=== PATIENT | male | born 1975 | race African-American/Black ===

== ENCOUNTER 2018-01-21 01:53 | Emergency (ER) | payer OTHER ==
--- NOTE | 2018-01-21 03:18 | ED ---
Fall HPI - General Chief Complaint: Fall Stated Complaint: Fall Time Seen by Provider: 01/21/18 02:16 Source: patient Mode of arrival: wheelchair - History of Present Illness Initial Comments: 42-year-old male patient presents to the emergency department today for evaluation of right knee pain and back pain after expressing a fall this evening. Patient states around 1 AM he was about 4-5 steps up on a ladder when he slipped and fell landing on his right side. Patient denies hitting his head but states he did lose consciousness after hitting the ground. Patient states he is having pain to his entire back as well as his right knee. Patient states he was able to ambulate. States he does have pain radiating down his anterior legs to his feet as well as some numbness and tingling to the feet which is not new for him. States he does have chronic back pain. Patient denies any saddle anesthesia or loss of bowel or bladder control. Patient states he is also having some neck discomfort that worsens when he turns his head right or left. He denies any radiation of the pain down his arms, denies numbness or tingling to his upper extremities. Patient denies any chest pain, shortness of breath, abdominal pain, nausea, or vomiting. Denies any blurred or double vision. During history and physical exam patient is quite drowsy. Patient has changed the story a couple of times during this interview. Patient denies any alcohol or drug use. Denies taking anything for pain. - Related Data Previous Rx's Medication Instructions Recorded Ibuprofen [Motrin] 600 mg PO Q8HR PRN #30 tab 01/21/18 Allergies Allergy/AdvReac Type Severity Reaction Status Date / Time No Known Allergies Allergy Verified 01/21/18 02:09 Review of Systems ROS Statement: Those systems with pertinent positive or pertinent negative responses have been documented in the HPI. ROS Other: All systems not noted in ROS Statement are negative. Past Medical History Past Medical History: Hypertension History of Any Multi-Drug Resistant Organisms: None Reported Past Surgical History: Bowel Resection Past Psychological History: No Psychological Hx Reported Smoking Status: Current every day smoker Past Alcohol Use History: Occasional Past Drug Use History: Marijuana General Exam Limitations: no limitations General appearance: in no apparent distress, other (Patient is drowsy. He is a well-developed, well-nourished adult male patient in no acute distress. Vital signs upon presentation are temperature 98.4F, pulse 84, respirations 15, blood pressure 101/72, pulse ox 98% on room air.) Head exam: Present: atraumatic, normocephalic, normal inspection Eye exam: Present: normal appearance, PERRL, EOMI, other (Pupils 2 mm). Absent : scleral icterus, conjunctival injection, periorbital swelling, periorbital tenderness ENT exam: Present: normal exam, normal oropharynx, mucous membranes moist Neck exam: Present: normal inspection, full ROM, other (No cervical tenderness) . Absent: tenderness, meningismus, lymphadenopathy Respiratory exam: Present: normal lung sounds bilaterally. Absent: respiratory distress, wheezes, rales, rhonchi, stridor Cardiovascular Exam: Present: regular rate, normal rhythm, normal heart sounds. Absent: systolic murmur, diastolic murmur, rubs, gallop, clicks GI/Abdominal exam: Present: soft, normal bowel sounds. Absent: distended, tenderness, guarding, rebound, rigid Extremities exam: Present: normal inspection, full ROM, normal capillary refill , other (Patient has no tenderness to the right any. Skin is warm and dry with no swelling or ecchymosis. No surface trauma noted. Pedal and posttibial pulses 2+ and equal bilaterally.). Absent: tenderness, pedal edema, joint swelling, calf tenderness Back exam: Present: normal inspection, vertebral tenderness (Patient did have thoracic vertebral tenderness), other (No lumbar tenderness. No evidence of ecchymosis or swelling. No bony step-off or deformity noted to for midline palpation of the posterior thoracic and lumbar spines.) Neurological exam: Present: CN II-XII intact. Absent: alert (Drowsy), oriented X3 (Oriented 2) Psychiatric exam: Present: normal affect, normal mood Skin exam: Present: warm, dry, intact, normal color. Absent: rash Course Vital Signs 01/21/18 01/21/18 02:04 05:21 Temperature 98.4 F 97.6 F Pulse Rate 84 74 Respiratory 15 18 Rate Blood Pressure 101/72 126/57 O2 Sat by Pulse 98 99 Oximetry Medical Decision Making - Medical Decision Making 42-year-old male patient presented to the emergency department today for evaluation of right knee pain and back pain after expressing a fall today. Patient initially stated he was on a ladder and fell from 4-5 rungs up. Patient did change his story multiple times on the emergency department. He was quite drowsy upon initial evaluation. Physical examination did reveal some right anterior knee tenderness and swelling. Patient had some mid thoracic vertebral tenderness. Other than being drowsy patient was neurologically intact with no focal deficits. CT brain and C-spine was obtained and showed no acute abnormalities. X-ray of the thoracic vertebrae did show 5-10% wedging of the lower thoracic vertebra which is consistent with previous x-ray and old injury. X-ray of the right knee was obtained and did show a high riding patella which is consistent with infrapatellar tendon tear. Upon reevaluation patient is more alert and is answering questions appropriately. States that he slipped and fell while outside and did a fall from ground level position onto the cement. I did discuss findings and results with the patient. He will be placed in a knee immobilizer and instructed to follow-up with the cyber systems operations specialist as soon as possible. He is instructed to follow-up with his primary care physician for recheck in 1-2 days. Return parameters were discussed in detail. He verbalizes understanding and agrees with this plan. - EKG Data -: EKG Interpreted by Me EKG Comments: EKG obtained at 0227 shows normal sinus rhythm with a ventricular rate of 84, WI interval 136, QRS duration 92, QT 356, QTC 420. No evidence of ST elevation or depression. - Radiology Data Radiology results: report reviewed, image reviewed 3 views of the thoracic vertebrae were obtained. Report was reviewed in its entirety. Impression by Dr. James shows mild hypertrophic spurring. No acute fracture. No adverse change compared to old exam. There is 5-10% wedging of lower thoracic vertebra consistent with old injury. This appears unchanged. 3 views of the right knee were obtained. Report was reviewed in its entirety. Impression by Dr. James shows patella appears to be in a high physician is consistent with tear of the infrapatellar tendon. No fracture seen. There is soft tissue swelling of tendon region. CT of the brain and C-spine was obtained without contrast. Report was reviewed in its entirety. Impression by Dr. James shows negative computed tomography scan of the brain. Spondylotic changes in the lower and mid cervical spine. No fracture. There is probably some degree of spinal stenosis due to the ligament calcification. Disposition Clinical Impression: Patellar tendon rupture, Head injury Disposition: HOME SELF-CARE Condition: Good Instructions: Head Injury (ED), Knee Immobilizer (ED), Tendon Rupture (ED) Additional Instructions: Take medication as directed. Follow-up with cyber systems operations specialist for recheck since possible. Return here immediately for any new, worsening, or concerning symptoms. Prescriptions: Ibuprofen [Motrin] 600 mg PO Q8HR PRN #30 tab PRN Reason: Pain Is patient prescribed a controlled substance at d/c from ED?: No Referrals: Nonstaff,Physician [Primary Care Provider] - 1-2 days Sy Rojas DO [Doctor of Osteopathic Medicine] - 1-2 days Time of Disposition: 05:03
--- NOTE | 2018-01-21 03:29 | CT ---
EXAMINATION TYPE: CT brain wilda bernardo DATE OF EXAM: 01/21/2018 COMPARISON: HISTORY: poor historian, fall?? CT DLP: 1476.10 mGycm Automated exposure control for dose reduction was used. TECHNIQUE: CT scan of the head and cervical spine are performed without contrast. FINDINGS: Ventricles of normal size. There is no mass effect nor midline shift. There is no sign of intracranial hemorrhage. The calvarium is intact. Cervical vertebra have normal alignment. There is hypertrophic anterior spurring from C4 to T1. Poste rior elements are intact. There is mild hypertrophic facet arthropathy in the lower cervical spine. S kull base is intact. There is calcification in the posterior longitudinal ligament from C4 to C7. IMPRESSION: Negative CT scan of the brain. Spondylotic changes in the lower and mid cervical spine. No fracture. There is probably some degree o f spinal stenosis due to the ligament calcification.
--- NOTE | 2018-01-21 03:51 | XR ---
EXAMINATION TYPE: XR thoracic spine complete DATE OF EXAM: 01/21/2018 COMPARISON: 07/11/2010 HISTORY: Back pain TECHNIQUE: 3 views FINDINGS: Thoracic vertebra have normal spacing and alignment. There is mild spurring of the endplate s in the lower thoracic spine. There is no paraspinal mass. Posterior elements are intact IMPRESSION: Mild hypertrophic spurring. No acute fracture. No adverse change compared to old exam. Th ere is 5-10% wedging of lower thoracic vertebra consistent with old injury. This appears unchanged.
--- NOTE | 2018-01-21 03:53 | XR ---
EXAMINATION TYPE: XR knee complete RT DATE OF EXAM: 01/21/2018 COMPARISON: NONE HISTORY: Knee pain TECHNIQUE: 3 views FINDINGS: There is some soft tissue swelling anterior to the proximal tibia. There is no joint effusi on. I see no fracture nor dislocation. Patella is in high position on the lateral view. IMPRESSION: Patella appears to be in a high position that is consistent with tear of the infrapatella r tendon. No fracture seen. There is soft tissue swelling of the tendon region.
[2018-01-21] MEDS ORDERED: NALOXONE 0.4 MG/ML 10 ML VIAL IM STA (04:45)
[2018-01-21 05:21] VITALS: BP 126/57; PULSE 74; RESP 18; TEMP 97.6
== END 2018-01-21 05:34 | disposition home or self-care (01) ==
LOC: EC 01:53
DX: S76.111A Strain of right quadriceps muscle, fascia and tendon, initial encounter (principal); S09.90XA Unspecified injury of head, initial encounter; M47.812 Spondylosis without myelopathy or radiculopathy, cervical region; M46.04 Spinal enthesopathy, thoracic region; G89.29 Other chronic pain; M54.9 Dorsalgia, unspecified; M79.604 Pain in right leg; M79.605 Pain in left leg; M79.671 Pain in right foot; M79.672 Pain in left foot; R20.0 Anesthesia of skin; R20.2 Paresthesia of skin; F17.200 Nicotine dependence, unspecified, uncomplicated; Z53.8 Procedure and treatment not carried out for other reasons; W01.0XXA Fall on same level from slipping, tripping and stumbling without subsequent striking against object, initial encounter; Y92.89 Other specified places as the place of occurrence of the external cause
CPT/HCPCS: 93005; 72072; 73562; 72125; 70450; 99284; L1830

== ENCOUNTER 2018-01-29 01:46 | Emergency (ER) | payer OTHER ==
--- NOTE | 2018-01-29 02:11 | ED ---
General Adult HPI - General Stated complaint: Fever Time Seen by Provider: 01/29/18 01:55 Source: patient, EMS Limitations: altered mental status - History of Present Illness Initial comments: This patient is a 42-year-old man who resents by ambulance to be evaluated for right hip pain. The patient reports that he had a fall a little over a week ago. He states he fell off a ladder, landing on hard floor. He believes that the height was 4-6 feet. Patient denies other injuries. The patient is very somnolent and the history is limited. Onset/Timin -: week(s) Location: right, lower extremity Radiation: non-radiation Quality: aching Consistency: constant Improves with: none Worsens with: movement Associated Symptoms: denies other symptoms Treatments Prior to Arrival: none - Related Data Previous Rx's Medication Instructions Recorded Ibuprofen [Motrin] 600 mg PO Q8HR PRN #30 tab 01/21/18 Allergies Allergy/AdvReac Type Severity Reaction Status Date / Time No Known Allergies Allergy Verified 01/21/18 02:09 Review of Systems ROS Statement: Those systems with pertinent positive or pertinent negative responses have been documented in the HPI. ROS Other: All systems not noted in ROS Statement are negative. Limitations: ROS unobtainable due to patients medical condition Cardiovascular: Denies: chest pain Gastrointestinal: Denies: abdominal pain Musculoskeletal: Reports: as per HPI Neurological: Denies: headache Past Medical History Past Medical History: Hypertension History of Any Multi-Drug Resistant Organisms: None Reported Past Surgical History: Bowel Resection Past Psychological History: No Psychological Hx Reported Smoking Status: Current every day smoker Past Alcohol Use History: Occasional Past Drug Use History: Marijuana General Exam General appearance: in no apparent distress, other (Patient is somnolent but arouses to physical stimulus.) Head exam: Present: atraumatic, normocephalic Eye exam: Present: normal appearance, PERRL, EOMI, nystagmus. Absent: scleral icterus, conjunctival injection ENT exam: Present: mucous membranes dry Neck exam: Present: normal inspection, full ROM. Absent: tenderness Respiratory exam: Present: normal lung sounds bilaterally. Absent: respiratory distress, wheezes, rales, rhonchi, stridor Cardiovascular Exam: Present: regular rate, normal rhythm, normal heart sounds. Absent: systolic murmur, diastolic murmur, rubs, gallop GI/Abdominal exam: Present: soft. Absent: tenderness, guarding, rebound, mass Extremities exam: Present: normal inspection, tenderness (Right lateral hip), normal capillary refill. Absent: pedal edema, calf tenderness Back exam: Present: normal inspection. Absent: CVA tenderness (R), CVA tenderness (L), vertebral tenderness Neurological exam: Present: CN II-XII intact, other (Patient is somnolent but arousable. He is oriented to person and place but could not state the date.). Absent: motor sensory deficit Skin exam: Present: warm, dry, intact, normal color. Absent: rash Course Vital Signs 01/29/18 02:19 Temperature 99.5 F Pulse Rate 94 Respiratory 20 Rate Blood Pressure 107/66 O2 Sat by Pulse 98 Oximetry EKG Findings - EKG Results: EKG: interpreted by SOPHIE MATHEW, sinus rhythm (Rate 95 bpm), normal axis, normal QRS, normal ST/T, no acute changes - NC, Pacemaker, Normal: Normal tracing: normal tracing Medical Decision Making - Lab Data Result diagrams: 01/29/18 02:28 01/29/18 02:28 Lab Results 01/29/18 01/29/18 01/29/18 Range/Units 02:05 02:28 02:28 WBC 8.0 (3.8-10.6) k/uL RBC 4.01 L (4.30-5.90) m/uL Hgb 12.2 L (13.0-17.5) gm/dL Hct 37.0 L (39.0-53.0) % MCV 92.4 (80.0-100.0) fL MCH 30.3 (25.0-35.0) pg MCHC 32.8 (31.0-37.0) g/dL RDW 13.0 (11.5-15.5) % Plt Count 273 (150-450) k/uL Neutrophils % 74 % Lymphocytes % 18 % Monocytes % 4 % Eosinophils % 3 % Basophils % 0 % Neutrophils # 5.9 (1.3-7.7) k/uL Lymphocytes # 1.5 (1.0-4.8) k/uL Monocytes # 0.3 (0-1.0) k/uL Eosinophils # 0.2 (0-0.7) k/uL Basophils # 0.0 (0-0.2) k/uL PT (9.0-12.0) sec INR (<1.2) APTT (22.0-30.0) sec Sodium (137-145) mmol/L Potassium (3.5-5.1) mmol/L Chloride (98-107) mmol/L Carbon Dioxide (22-30) mmol/L Anion Gap mmol/L BUN (9-20) mg/dL Creatinine (0.66-1.25) mg/dL Est GFR (CKD-EPI)AfAm (>60 ml/min/1.73 sqM) Est GFR (CKD-EPI)NonAf (>60 ml/min/1.73 sqM) Glucose (74-99) mg/dL Calcium (8.4-10.2) mg/dL Total Bilirubin (0.2-1.3) mg/dL AST (17-59) U/L ALT (21-72) U/L Alkaline Phosphatase (38-126) U/L Total Creatine Kinase 296 H (55-170) U/L CK-MB (CK-2) 2.5 H (0.0-2.4) ng/mL CK-MB (CK-2) Rel Index 0.8 Total Protein (6.3-8.2) g/dL Albumin (3.5-5.0) g/dL Serum Alcohol 126 mg/dL 01/29/18 01/29/18 Range/Units 02:28 02:28 WBC (3.8-10.6) k/uL RBC (4.30-5.90) m/uL Hgb (13.0-17.5) gm/dL Hct (39.0-53.0) % MCV (80.0-100.0) fL MCH (25.0-35.0) pg MCHC (31.0-37.0) g/dL RDW (11.5-15.5) % Plt Count (150-450) k/uL Neutrophils % % Lymphocytes % % Monocytes % % Eosinophils % % Basophils % % Neutrophils # (1.3-7.7) k/uL Lymphocytes # (1.0-4.8) k/uL Monocytes # (0-1.0) k/uL Eosinophils # (0-0.7) k/uL Basophils # (0-0.2) k/uL PT 9.6 (9.0-12.0) sec INR 1.0 (<1.2) APTT 26.2 (22.0-30.0) sec Sodium 141 (137-145) mmol/L Potassium 3.8 (3.5-5.1) mmol/L Chloride 105 (98-107) mmol/L Carbon Dioxide 23 (22-30) mmol/L Anion Gap 13 mmol/L BUN 13 (9-20) mg/dL Creatinine 0.67 (0.66-1.25) mg/dL Est GFR (CKD-EPI)AfAm >90 (>60 ml/min/1.73 sqM) Est GFR (CKD-EPI)NonAf >90 (>60 ml/min/1.73 sqM) Glucose 92 (74-99) mg/dL Calcium 9.0 (8.4-10.2) mg/dL Total Bilirubin 0.6 (0.2-1.3) mg/dL AST 32 (17-59) U/L ALT 19 L (21-72) U/L Alkaline Phosphatase 55 (38-126) U/L Total Creatine Kinase (55-170) U/L CK-MB (CK-2) (0.0-2.4) ng/mL CK-MB (CK-2) Rel Index Total Protein 7.4 (6.3-8.2) g/dL Albumin 3.9 (3.5-5.0) g/dL Serum Alcohol mg/dL Disposition Clinical Impression: Fall Disposition: HOME SELF-CARE Condition: Good Instructions: Fall Prevention (ED) Is patient prescribed a controlled substance at d/c from ED?: No Referrals: None,Stated [Primary Care Provider] - 1-2 days
[2018-01-29 02:23] VITALS: RESP 20
[2018-01-29 02:40] LABS: Basophils % (A) 0 %; Eosinophils # (A) 0.2 k/uL (0-0.7); Eosinophils % (A) 3 %; HGB 12.2 gm/dL (13.0-17.5); Lymphocytes # (A) 1.5 k/uL (1.0-4.8); Lymphocytes % (A) 18 %; MCH 30.3 pg (25.0-35.0); MCHC 32.8 g/dL (31.0-37.0); MCV 92.4 fL (80.0-100.0); Mean Platelet Volume 7.1; Monocytes # (A) 0.3 k/uL (0-1.0); Monocytes % (A) 4 %; Neutrophils # (A) 5.9 k/uL (1.3-7.7); Neutrophils % (A) 74 %; Platelet Count 273 k/uL (150-450); RBC 4.01 m/uL (4.30-5.90)
[2018-01-29 02:54] LABS: Partial Thromboplastin Time 26.2 sec (22.0-30.0); Prothrombin Time 9.6 sec (9.0-12.0)
[2018-01-29 02:59] LABS: ALT 19 U/L (21-72); AST 32 U/L (17-59); Albumin 3.9 g/dL (3.5-5.0); Alkaline Phosphatase 55 U/L (38-126); Anion Gap 13 mmol/L; Blood Urea Nitrogen 13 mg/dL (9-20); Carbon Dioxide 23 mmol/L (22-30); Chloride 105 mmol/L (98-107); Creatine Kinase MB 2.5 ng/mL (0.0-2.4); Glucose 92 mg/dL (74-99); Potassium 3.8 mmol/L (3.5-5.1); Sodium 141 mmol/L (137-145); Total Bilirubin 0.6 mg/dL (0.2-1.3); Total Protein 7.4 g/dL (6.3-8.2)
--- NOTE | 2018-01-29 03:27 | CT ---
EXAMINATION TYPE: CT brain wo con DATE OF EXAM: 01/29/2018 COMPARISON: 01/21/2018 HISTORY: Fall. Pain. CT DLP: mGycm. Automated Exposure Control for Dose Reduction was Utilized. TECHNIQUE: CT scan of the head is performed without contrast. FINDINGS: Ventricles of normal size. There is no mass effect nor midline shift. There is no sign of i ntracranial hemorrhage. The calvarium is intact. IMPRESSION: Negative CT scan of the brain. No change.
--- NOTE | 2018-01-29 03:29 | XR ---
EXAMINATION TYPE: XR Hip RT and AP Pelvis DATE OF EXAM: 01/29/2018 COMPARISON: NONE HISTORY: Fall. Hip pain TECHNIQUE: A single AP view of the pelvis is obtained. Two views of the right hip are obtained. FINDINGS: The pelvic ring is intact. Proximal right femur and hip joint appear normal. There is no si gn of hip dysplasia. Sacroiliac joints appear normal. IMPRESSION: Negative pelvis and right hip exam.
[2018-01-29 07:00] VITALS: BP 115/76; PULSE 110; TEMP 98.9
== END 2018-01-29 07:00 | disposition home or self-care (01) ==
LOC: EC 01:46
DX: H55.00 Unspecified nystagmus (principal); R40.0 Somnolence; M25.551 Pain in right hip; F17.200 Nicotine dependence, unspecified, uncomplicated; W11.XXXA Fall on and from ladder, initial encounter
CPT/HCPCS: 36415; 93005; 80053; 82550; 82553; 85025; 85610; 85730; 73502; 70450; 99285; G0480; 80320

== ENCOUNTER 2018-03-07 21:24 | Emergency (ER) | payer OTHER ==
[2018-03-07 21:38] VITALS: PULSE 74; RESP 20
--- NOTE | 2018-03-07 22:24 | ED ---
General Adult HPI - General Source: patient, RN notes reviewed, old records reviewed Mode of arrival: ambulatory Limitations: no limitations <Harshal Rodriguez - Last Filed: 03/07/18 22:08> <Leena Stanton - Last Filed: 03/08/18 00:05> - General Chief complaint: Headache Stated complaint: Migraine - History of Present Illness Initial comments: 42-year-old male patient presents to ED with multiple complaints. Patient's primary complaint is pressure at maxillary sinus, congestion, rhinitis. Patient states he has been experiencing this for approximately 1 week. Patient has secondary complaint mild of pain in abdomen waxing waning for approximately 2 days. Patient has been complaint of pain in right knee for approximately 1 week. Upon further history patient reports that he fell off a ladder approximately 6 ft off the ground 1.5 weeks ago. Patient reports that in this fall he hurt his head, right knee. Patient states that he suffered a laceration to his head "lost a lot of blood". Patient states that he was seen at [facility] discharge. Patient denies that he had any sort of fracture, intracranial pathology after the trauma. Exam of patient does not reveal any laceration to head or signs of recent trauma. Patient denies chest pain, shortness of breath, fever/chills, nausea vomiting diarrhea, changes in vision, paresthesias, extremity weakness, loss of bowel or bladder control, back pain. Systemic: Pt denies fatigue, myalgia, fever/chills, rash. Pt denies weakness, night sweats, weight loss. Neuro: Pt denies visual disturbances, syncope or pre-syncope. HEENT: Pt denies ocular discharge or irritation, otalgia, rhinorrhea, pharyngitis or notable lymphadenopathy. Cardiopulmonary: Pt denies chest pain, SOB, heart palpitations, dyspnea on exertion. Abdominal/GI: Pt denies abdominal pain, n/v/d. : Pt denies dysuria, burning w/ urination, frequency/urgency. Denies new onset urinary or bowel incontinence. MSK: Pt denies myalgia, loss of strength or function in extremities. (Harshal Rodriguez) - Related Data Previous Rx's Medication Instructions Recorded Ibuprofen [Motrin] 600 mg PO Q8HR PRN #30 tab 01/21/18 Amoxicillin/Potassium Clav 1 each PO Q12HR 7 Days #14 tab 03/07/18 [Augmentin 875-125 Tablet] Fluticasone Propionate [Flonase 1 - 2 spray EA NOSTRIL DAILY 5 03/07/18 Allergy Relief] Days ml Allergies Allergy/AdvReac Type Severity Reaction Status Date / Time No Known Allergies Allergy Verified 01/21/18 02:09 Review of Systems ROS Other: All systems not noted in ROS Statement are negative. <Harshal Rodriguez - Last Filed: 03/07/18 22:08> ROS Other: All systems not noted in ROS Statement are negative. <Leena Stanton - Last Filed: 03/08/18 00:05> ROS Statement: Those systems with pertinent positive or pertinent negative responses have been documented in the HPI. Past Medical History Past Medical History: Hypertension History of Any Multi-Drug Resistant Organisms: None Reported Past Surgical History: Bowel Resection Past Psychological History: No Psychological Hx Reported Smoking Status: Current every day smoker Past Alcohol Use History: Occasional Past Drug Use History: Marijuana <Harshal Rodriguez - Last Filed: 03/07/18 22:08> General Exam Limitations: no limitations <Harshal Rodriguez - Last Filed: 03/07/18 22:08> <Leena Stanton - Last Filed: 03/08/18 00:05> - General Exam Comments Initial Comments: Constitutional: NAD, AOX3, Pt has pleasant affect. HEENT: NC/AT, trachea midline, neck supple, no lymphadenopathy. Posterior pharynx non erythematous, without exudates. External ears appear normal, without discharge. Mucous membranes moist. Eyes PERRLA, EOM intact. There is no scleral icterus. No pallor noted. Maxillary sinus pressure reproducible upon palpation. Cardiopulmonary: RRR, no murmurs, rubs or gallops, no JVD noted. Lungs CTAB in anterior and posterior jhaveri. No peripheral edema. Abdominal exam: Abdomen soft and non-distended. Abdomen non-tender to palpation in all 4 quadrants. Bowel sounds active in LLQ. No hepatosplenomegaly. Patient does have a large ventral scar secondary to intra-abdominal surgery about 2 years ago. Neuro: CN II-XII intact. No cranial nerve deficit. Full sensation and range of motion in all extremities. MSK: Head NC/AT. No contusions, lacerations, ecchymoses, abrasions noted. No barroso sign, raccoon eyes. Full active range of motion of neck, mild cervical spinal tenderness. Right knee examined. No visual deformity, ecchymoses, abrasions, erythema, edema. Patient has full range of motion right knee. No point tenderness. Dorsalis pedis and posterior tibialis pulse +2 bilaterally. Sensation intact in upper and lower extremities. Patient ambulatory without difficulty. (Harshal Rodriguez) Vital Signs 03/07/18 03/07/18 21:35 23:24 Temperature 98.1 F 97.7 F Pulse Rate 74 74 Respiratory 20 20 Rate Blood Pressure 122/77 129/92 O2 Sat by Pulse 97 95 Oximetry Medical Decision Making <Harshal Rodriguez - Last Filed: 03/07/18 22:08> - Lab Data Result diagrams: 03/07/18 22:14 03/07/18 22:14 <Leena Stanton - Last Filed: 03/08/18 00:05> - Medical Decision Making 42-year-old male patient presents in ED with multiple complaints. Primary complaint was maxillary sinus pressure, rhinitis, congestion approximately one week. Patient will be treated for acute sinusitis, discharged with by mouth antibiotic and decongestant. Patient had secondary complaint of abdominal pain , waxing and waning approximately 2 days. Abdomen is nontender on exam, no ecchymoses. Patient states that the pain is waxing and waning, non specific and not localized. This is likely moderate GI upset secondary to acute sinusitis or concurrent viral GI bug. Patient does not have nausea/vomiting/diarrhea or fevers or chills. Patient will continue to monitor this and return to ED if the symptoms worsen. Laboratory workup of CBC, CMP, amylase, lipase did not display any concern for acute intra-abdominal pathology. Patient had third complaint of knee pain and history of fall off ladder approximately 1.5 weeks, in which he sought care at [facility]. Physical exam revealed moderate right cervical spinal tenderness. Noncontrast CT of head and neck was conducted as well as plain film of right knee. Both which are negative. Patient to be discharged with by mouth antibiotic and decongestant for acute sinusitis. Patient to continue to monitor abdominal pain, return to ED if symptoms worsen or new symptoms develop. Patient given strict return parameters upon discharge. These included but not limited to, chest pain, abdominal pain, headache, chest vision, nausea and diarrhea, abdominal pain. Patient to follow with PCP in 1-2 days. Case discussed with Dr. Stanton. (Harshal Rodriguez) I was available for consultation in the emergency department. The history and physical exam were done by the midlevel provider. I was consulted for this patient's care. I reviewed the case with the midlevel provider and based on their presentation of the patient, I agree with the assessment, medical decision making and plan of care as documented. (Leena Stanton) - Lab Data Lab Results 03/07/18 03/07/18 Range/Units 22:14 22:14 WBC 4.4 (3.8-10.6) k/uL RBC 3.76 L (4.30-5.90) m/uL Hgb 12.0 L (13.0-17.5) gm/dL Hct 35.3 L (39.0-53.0) % MCV 94.1 (80.0-100.0) fL MCH 32.0 (25.0-35.0) pg MCHC 34.0 (31.0-37.0) g/dL RDW 12.9 (11.5-15.5) % Plt Count 219 (150-450) k/uL Neutrophils % 48 % Lymphocytes % 40 % Monocytes % 7 % Eosinophils % 2 % Basophils % 0 % Neutrophils # 2.1 (1.3-7.7) k/uL Lymphocytes # 1.8 (1.0-4.8) k/uL Monocytes # 0.3 (0-1.0) k/uL Eosinophils # 0.1 (0-0.7) k/uL Basophils # 0.0 (0-0.2) k/uL Sodium 139 (137-145) mmol/L Potassium 4.2 (3.5-5.1) mmol/L Chloride 107 (98-107) mmol/L Carbon Dioxide 26 (22-30) mmol/L Anion Gap 6 mmol/L BUN 14 (9-20) mg/dL Creatinine 0.84 (0.66-1.25) mg/dL Est GFR (CKD-EPI)AfAm >90 (>60 ml/min/1.73 sqM) Est GFR (CKD-EPI)NonAf >90 (>60 ml/min/1.73 sqM) Glucose 101 H (74-99) mg/dL Calcium 9.4 (8.4-10.2) mg/dL Total Bilirubin 0.6 (0.2-1.3) mg/dL AST 24 (17-59) U/L ALT 29 (21-72) U/L Alkaline Phosphatase 54 (38-126) U/L Total Protein 7.2 (6.3-8.2) g/dL Albumin 3.7 (3.5-5.0) g/dL Amylase 99 (30-110) U/L Lipase 280 (23-300) U/L Disposition Is patient prescribed a controlled substance at d/c from ED?: No <Harshal Rodriguez - Last Filed: 03/07/18 22:08> <Leena Stanton - Last Filed: 03/08/18 00:05> Clinical Impression: Sinusitis, acute Disposition: HOME SELF-CARE Condition: Good Instructions: Sinusitis (ED) Additional Instructions: Patient to adhere to previously discussed treatment plan and will take medication(s) as directed. Patient to follow up with PCP in 1-2 days. Patient to return to ED if symptoms do not improve. Prescriptions: Amoxicillin/Potassium Clav [Augmentin 875-125 Tablet] 1 each PO Q12HR 7 Days # 14 tab Fluticasone Propionate [Flonase Allergy Relief] 1 - 2 spray EA NOSTRIL DAILY 5 Days ml Referrals: Nonstaff,Physician [Primary Care Provider] - 1-2 days
--- NOTE | 2018-03-07 22:42 | XR ---
EXAMINATION TYPE: XR knee complete RT DATE OF EXAM: 03/07/2018 COMPARISON: NONE HISTORY: Knee pain TECHNIQUE: 3 views FINDINGS: I see no fracture nor dislocation. Joint spaces are fairly normal. There is no sign of knee joint effusion. IMPRESSION: Negative right knee exam. No fracture.
[2018-03-07 22:51] LABS: Basophils % (A) 0 %; Eosinophils # (A) 0.1 k/uL (0-0.7); Eosinophils % (A) 2 %; HCT 35.3 % (39.0-53.0); Lymphocytes # (A) 1.8 k/uL (1.0-4.8); Lymphocytes % (A) 40 %; MCV 94.1 fL (80.0-100.0); Mean Platelet Volume 7.4; Monocytes # (A) 0.3 k/uL (0-1.0); Monocytes % (A) 7 %; Neutrophils # (A) 2.1 k/uL (1.3-7.7); Neutrophils % (A) 48 %; Platelet Count 219 k/uL (150-450); RBC 3.76 m/uL (4.30-5.90); RDW 12.9 % (11.5-15.5); WBC 4.4 k/uL (3.8-10.6)
--- NOTE | 2018-03-07 22:52 | CT ---
EXAMINATION TYPE: CT brain gonzalezine wo con DATE OF EXAM: 03/07/2018 COMPARISON: 01/21/2018 HISTORY: head and neck pain without injury CT DLP: 1175.3 mGycm Automated exposure control for dose reduction was used. TECHNIQUE: CT scan of the head and cervical spine are performed without contrast. FINDINGS: Ventricles and sulci appear normal. There is no mass effect nor midline shift. There is n o sign of intracranial hemorrhage. The calvarium is intact. Sella turcica appears normal. Cervical vertebra have normal alignment. There is hypertrophic spurring from C4 to C7 with endplate s pur formation. Facet joints are intact. The skull base is intact. I see no bony destructive process. IMPRESSION: Spondylotic changes in the cervical spine. No fracture. No change compared to old exam. Negative CT scan of the brain. No change compared to old exam.
[2018-03-07 23:00] LABS: ALT 29 U/L (21-72); AST 24 U/L (17-59); Albumin 3.7 g/dL (3.5-5.0); Alkaline Phosphatase 54 U/L (38-126); Amylase 99 U/L (30-110); Anion Gap 6 mmol/L; Blood Urea Nitrogen 14 mg/dL (9-20); Calcium 9.4 mg/dL (8.4-10.2); Carbon Dioxide 26 mmol/L (22-30); Chloride 107 mmol/L (98-107); Glucose 101 mg/dL (74-99); Lipase 280 U/L (23-300); Potassium 4.2 mmol/L (3.5-5.1); Sodium 139 mmol/L (137-145); Total Bilirubin 0.6 mg/dL (0.2-1.3); Total Protein 7.2 g/dL (6.3-8.2)
[2018-03-07 23:28] VITALS: BP 129/92; TEMP 97.7
== END 2018-03-07 23:28 | disposition home or self-care (01) ==
LOC: EC 21:24
DX: J01.90 Acute sinusitis, unspecified (principal); M25.561 Pain in right knee; R10.9 Unspecified abdominal pain; F17.200 Nicotine dependence, unspecified, uncomplicated
CPT/HCPCS: 36415; 70450; 72125; 80053; 82150; 83690; 85025; 99284

== ENCOUNTER 2018-03-23 21:59 | Emergency (ER) | payer OTHER ==
--- NOTE | 2018-03-24 00:27 | ED ---
General Adult HPI - General Chief complaint: Recheck/Abnormal Lab/Rx Stated complaint: joint pain Time Seen by Provider: 03/24/18 00:26 Source: patient Mode of arrival: ambulatory Limitations: no limitations - History of Present Illness Initial comments: Is a 42-year-old -[place] male with a history of closed head injury he presents the emergency department today for evaluation of flulike illness. Patient reports that he was in contact with his nieces and nephews who have flulike illness as well, he reports that for the past 3 days he's had an otherwise body aches, cramping of his entire body, today she reports subjective fevers, nonproductive cough. Patient is versus concerned he may have the flu. - Related Data Previous Rx's Medication Instructions Recorded Ibuprofen [Motrin] 600 mg PO Q8HR PRN #30 tab 01/21/18 Amoxicillin/Potassium Clav 1 each PO Q12HR 7 Days #14 tab 03/07/18 [Augmentin 875-125 Tablet] Fluticasone Propionate [Flonase 1 - 2 spray EA NOSTRIL DAILY 5 03/07/18 Allergy Relief] Days ml Allergies Allergy/AdvReac Type Severity Reaction Status Date / Time No Known Allergies Allergy Verified 03/23/18 22:51 Review of Systems ROS Statement: Those systems with pertinent positive or pertinent negative responses have been documented in the HPI. ROS Other: All systems not noted in ROS Statement are negative. Constitutional: Reports: fever Respiratory: Reports: cough Cardiovascular: Reports: chest pain Endocrine: Reports: fatigue Gastrointestinal: Denies: abdominal pain, nausea, vomiting Genitourinary: Denies: urgency Skin: Denies: rash Neurological: Denies: headache Hematological/Lymphatic: Denies: easy bleeding Past Medical History Past Medical History: Hypertension, Seizure Disorder History of Any Multi-Drug Resistant Organisms: None Reported Past Surgical History: Bowel Resection Past Psychological History: No Psychological Hx Reported Smoking Status: Current every day smoker Past Alcohol Use History: Occasional Past Drug Use History: Marijuana General Exam - General Exam Comments Initial Comments: Physical Exam GENERAL: Patient is well-developed and well-nourished. Patient is nontoxic and well- hydrated and is in no distress. HENT: Normocephalic, Atraumatic. EYES: PERRL, EOMI PULMONARY: Unlabored respirations. No audible rales rhonchi or wheezing was noted. CARDIOVASCULAR: There is a regular rate and rhythm without any murmurs gallops or rubs. ABDOMEN: Soft and nontender with normal bowel sounds. SKIN: Skin is clear with no lesions or rashes and otherwise unremarkable. : Deferred NEUROLOGIC: Patient is alert and oriented x3. Moving all extremities spontaneously MUSCULOSKELETAL: Normal extremities with adequate strength and full range of motion. No lower extremity swelling or edema. No calf tenderness. PSYCHIATRIC: Normal psychiatric evaluation. Limitations: no limitations Limitations: no limitations Course Vital Signs 03/23/18 03/24/18 22:48 00:44 Temperature 98.5 F 98.6 F Pulse Rate 96 90 Respiratory 16 17 Rate Blood Pressure 116/80 134/85 O2 Sat by Pulse 98 99 Oximetry Medical Decision Making - Medical Decision Making Patient was seen and evaluated history was obtained from the patient. Patient with flulike illness, subjective fevers, body aches, nonproductive cough. Patient did not receive a flu vaccination this year. Patient has been in contact with multiple children who have viral-like illness, uncertain if he is been in contact with anybody with influenza. Labs and IV fluids ordered Chest x-ray with no evidence of pneumonia Labs no significant abnormalities Influenza is negative I suspect the patient is suffering from a viral illness. I discussed with him the importance of hydration, symptomatic treatment, Tylenol and Motrin for fevers, return parameters were discussed. All questions pertaining to care were answered patient was discharged home in stable condition. - Lab Data Result diagrams: 03/24/18 01:31 03/24/18 01:31 Lab Results 03/24/18 03/24/18 03/24/18 Range/Units 01:31 01:31 01:31 WBC 4.1 (3.8-10.6) k/uL RBC 3.85 L (4.30-5.90) m/uL Hgb 12.0 L (13.0-17.5) gm/dL Hct 35.7 L (39.0-53.0) % MCV 92.7 (80.0-100.0) fL MCH 31.2 (25.0-35.0) pg MCHC 33.6 (31.0-37.0) g/dL RDW 12.4 (11.5-15.5) % Plt Count 231 (150-450) k/uL Neutrophils % 53 % Lymphocytes % 36 % Monocytes % 6 % Eosinophils % 3 % Basophils % 0 % Neutrophils # 2.2 (1.3-7.7) k/uL Lymphocytes # 1.4 (1.0-4.8) k/uL Monocytes # 0.3 (0-1.0) k/uL Eosinophils # 0.1 (0-0.7) k/uL Basophils # 0.0 (0-0.2) k/uL PT (9.0-12.0) sec INR (<1.2) APTT (22.0-30.0) sec Sodium 139 (137-145) mmol/L Potassium 4.1 (3.5-5.1) mmol/L Chloride 108 H (98-107) mmol/L Carbon Dioxide 24 (22-30) mmol/L Anion Gap 7 mmol/L BUN 19 (9-20) mg/dL Creatinine 0.65 L (0.66-1.25) mg/dL Est GFR (CKD-EPI)AfAm >90 (>60 ml/min/1.73 sqM) Est GFR (CKD-EPI)NonAf >90 (>60 ml/min/1.73 sqM) Glucose 92 (74-99) mg/dL Plasma Lactic Acid Nikos 0.7 (0.7-2.0) mmol/L Calcium 8.8 (8.4-10.2) mg/dL Total Bilirubin 0.4 (0.2-1.3) mg/dL AST 24 (17-59) U/L ALT 27 (21-72) U/L Alkaline Phosphatase 50 (38-126) U/L Troponin I (0.000-0.034) ng/mL Total Protein 7.1 (6.3-8.2) g/dL Albumin 3.7 (3.5-5.0) g/dL Influenza Type A RNA (Not Detectd) Influenza Type B (PCR) (Not Detectd) 03/24/18 03/24/18 03/24/18 Range/Units 01:31 01:31 01:42 WBC (3.8-10.6) k/uL RBC (4.30-5.90) m/uL Hgb (13.0-17.5) gm/dL Hct (39.0-53.0) % MCV (80.0-100.0) fL MCH (25.0-35.0) pg MCHC (31.0-37.0) g/dL RDW (11.5-15.5) % Plt Count (150-450) k/uL Neutrophils % % Lymphocytes % % Monocytes % % Eosinophils % % Basophils % % Neutrophils # (1.3-7.7) k/uL Lymphocytes # (1.0-4.8) k/uL Monocytes # (0-1.0) k/uL Eosinophils # (0-0.7) k/uL Basophils # (0-0.2) k/uL PT 9.6 (9.0-12.0) sec INR 1.0 (<1.2) APTT 26.5 (22.0-30.0) sec Sodium (137-145) mmol/L Potassium (3.5-5.1) mmol/L Chloride (98-107) mmol/L Carbon Dioxide (22-30) mmol/L Anion Gap mmol/L BUN (9-20) mg/dL Creatinine (0.66-1.25) mg/dL Est GFR (CKD-EPI)AfAm (>60 ml/min/1.73 sqM) Est GFR (CKD-EPI)NonAf (>60 ml/min/1.73 sqM) Glucose (74-99) mg/dL Plasma Lactic Acid Nikos (0.7-2.0) mmol/L Calcium (8.4-10.2) mg/dL Total Bilirubin (0.2-1.3) mg/dL AST (17-59) U/L ALT (21-72) U/L Alkaline Phosphatase (38-126) U/L Troponin I <0.012 (0.000-0.034) ng/mL Total Protein (6.3-8.2) g/dL Albumin (3.5-5.0) g/dL Influenza Type A RNA Not Detected (Not Detectd) Influenza Type B (PCR) Not Detected (Not Detectd) - EKG Data -: EKG Interpreted by Me EKG Comments: EKG obtained at 1:21 AM, rate is 76 rhythm is sinus tach no acute ST elevations or depressions no evidence of acute ischemia or infarction Disposition Clinical Impression: Viral illness Disposition: HOME SELF-CARE Condition: Good Instructions: Viral Syndrome (ED) Is patient prescribed a controlled substance at d/c from ED?: No Referrals: Nonstaff,Physician [Primary Care Provider] - 1-2 days Time of Disposition: 03:12
[2018-03-24] MEDS ORDERED: ACETAMINOPHEN TAB 500 MG TAB PO STA (01:04)
[2018-03-24] MEDS: SODIUM CHLORIDE 0.9% 500 ML 500 ML IV SCH ×3 (01:39→03:44)
--- NOTE | 2018-03-24 01:42 | XR ---
EXAMINATION TYPE: XR chest 2V DATE OF EXAM: 03/24/2018 COMPARISON: 07/11/2010 HISTORY: Fever. Chest pain TECHNIQUE: Frontal and lateral views of the chest are obtained. FINDINGS: Heart and mediastinum are normal. Lungs are clear. Diaphragm is normal. Bony thorax is int act. Pulmonary vascularity is normal. IMPRESSION: Normal chest. There is clearing of right middle lobe pneumonia compared to old exam.
[2018-03-24 01:57] LABS: Basophils % (A) 0 %; Eosinophils # (A) 0.1 k/uL (0-0.7); Eosinophils % (A) 3 %; HCT 35.7 % (39.0-53.0); Lymphocytes # (A) 1.4 k/uL (1.0-4.8); Lymphocytes % (A) 36 %; MCH 31.2 pg (25.0-35.0); MCHC 33.6 g/dL (31.0-37.0); MCV 92.7 fL (80.0-100.0); Mean Platelet Volume 7.3; Monocytes # (A) 0.3 k/uL (0-1.0); Monocytes % (A) 6 %; Neutrophils # (A) 2.2 k/uL (1.3-7.7); Neutrophils % (A) 53 %; Platelet Count 231 k/uL (150-450); RBC 3.85 m/uL (4.30-5.90); RDW 12.4 % (11.5-15.5); WBC 4.1 k/uL (3.8-10.6)
[2018-03-24 02:11] LABS: Partial Thromboplastin Time 26.5 sec (22.0-30.0); Prothrombin Time 9.6 sec (9.0-12.0)
[2018-03-24 02:15] LABS: ALT 27 U/L (21-72); AST 24 U/L (17-59); Albumin 3.7 g/dL (3.5-5.0); Alkaline Phosphatase 50 U/L (38-126); Anion Gap 7 mmol/L; Blood Urea Nitrogen 19 mg/dL (9-20); Calcium 8.8 mg/dL (8.4-10.2); Carbon Dioxide 24 mmol/L (22-30); Chloride 108 mmol/L (98-107); Glucose 92 mg/dL (74-99); Potassium 4.1 mmol/L (3.5-5.1); Sodium 139 mmol/L (137-145); Total Bilirubin 0.4 mg/dL (0.2-1.3); Total Protein 7.1 g/dL (6.3-8.2)
[2018-03-24] MEDS ORDERED: IBUPROFEN 600 MG STARTER PACK 4 TAB BTL PO STA (03:39)
[2018-03-24 03:46] VITALS: BP 103/67; PULSE 87; RESP 16; TEMP 98.3
== END 2018-03-24 03:50 | disposition home or self-care (01) ==
LOC: EC 21:59
DX: B34.9 Viral infection, unspecified (principal); F17.200 Nicotine dependence, unspecified, uncomplicated
CPT/HCPCS: 36415; 71046; 80053; 83605; 84484; 85025; 85610; 85730; 87040; 87502; 93005; 99284

== ENCOUNTER 2018-09-29 23:34 | Emergency (ER) | payer OTHER ==
[2018-09-29 23:41] VITALS: TEMP 98.3
--- NOTE | 2018-09-30 01:50 | CT ---
EXAM: CT Head Without Intravenous Contrast CLINICAL HISTORY: ITS.REASON CT Reason: Pain TECHNIQUE: Axial computed tomography images of the head/brain without intravenous contrast. CTDI is 45 mGy and DLP is 1033 mGy-cm. This CT exam was performed using one or more of the following dose reduction techniques: automated exposure control, adjustment of the mA and/or kV according to patient size, and/or use of iterative reconstruction technique. COMPARISON: 03/07/18 CT FINDINGS: Brain: No hemorrhage, large hypodensity, or mass effect. Ventricles: No hydrocephalus. Bones/joints: Unremarkable. Soft tissues: Unremarkable. Sinuses: Unremarkable. Mastoid air cells: Clear. IMPRESSION: No acute hemorrhage, hydrocephalus, or mass effect. EXAM: CT Cervical Spine Without Intravenous Contrast CLINICAL HISTORY: ITS.REASON CT Reason: Pain TECHNIQUE: Axial computed tomography images of the cervical spine without intravenous contrast. CTDI is 17 mGy and DLP is 542 mGy-cm. This CT exam was performed using one or more of the following dose reduction techniques: automated exposure control, adjustment of the mA and/or kV according to patient size, and/or use of iterative reconstruction technique. COMPARISON: 03/07/18 CT FINDINGS: Vertebrae: No acute fracture. Unfused posterior arch of C1, likely congenital. Discs/spinal canal/neural foramina: No high grade spinal canal stenosis. Soft tissues: Unremarkable. IMPRESSION: No acute fracture or subluxation.
--- NOTE | 2018-09-30 02:08 | ED ---
Fall HPI - General Source: patient Mode of arrival: wheelchair <Marlena Calix - Last Filed: 09/30/18 04:17> <Duglas Cee - Last Filed: 09/30/18 11:17> - General Chief Complaint: Fall Stated Complaint: Fall,ETOH Time Seen by Provider: 09/30/18 00:00 - History of Present Illness Initial Comments: 43-year-old male patient who is obviously intoxicated presents to the emergency department today for evaluation after experiencing a fall. Patient is quite drowsy and unable to provide a good history. He was found by 2 staff members in the parking lot when he started that he had fallen. Patient denies any current extremity pain, chest pain, shortness of breath. Denies any current headache, blurred vision, or double vision. Patient does admit to drinking 2 pints of liquor today. Patient does have history of seizures, states he feels like one is going to come on. Patient denies any recent rash, shortness breath, chest pain, abdominal pain, nausea, vomiting, diarrhea, constipation, back pain, numbness, tingling, dizziness, weakness, hematuria, dysuria, urinary urgency, urinary frequency, headache, visual changes, or any other complaints. (Marlena Calix) - Related Data Previous Rx's Medication Instructions Recorded Ibuprofen [Motrin] 600 mg PO Q8HR PRN #30 tab 01/21/18 Amoxicillin/Potassium Clav 1 each PO Q12HR 7 Days #14 tab 03/07/18 [Augmentin 875-125 Tablet] Fluticasone Propionate [Flonase 1 - 2 spray EA NOSTRIL DAILY 5 03/07/18 Allergy Relief] Days ml Allergies Allergy/AdvReac Type Severity Reaction Status Date / Time No Known Allergies Allergy Verified 09/29/18 23:41 Review of Systems ROS Other: All systems not noted in ROS Statement are negative. <Marlena Calix - Last Filed: 09/30/18 04:17> ROS Other: All systems not noted in ROS Statement are negative. <Duglas Cee - Last Filed: 09/30/18 11:17> ROS Statement: Those systems with pertinent positive or pertinent negative responses have been documented in the HPI. Past Medical History Past Medical History: Hypertension, Seizure Disorder Additional Past Medical History / Comment(s): gloucoma History of Any Multi-Drug Resistant Organisms: None Reported Past Surgical History: Bowel Resection Past Psychological History: Anxiety, Bipolar, Depression, Schizophrenia Smoking Status: Current every day smoker Past Alcohol Use History: Occasional Past Drug Use History: Marijuana <Marlena Calix - Last Filed: 09/30/18 04:17> General Exam Limitations: no limitations General appearance: in no apparent distress, appears intoxicated, other (This is a well-developed, well-nourished adult male patient in no acute distress. Vital signs upon presentation are temperature 98.3F, pulse 116, respirations 18, blood pressure 121/77, pulse ox 98% on room air.) Head exam: Present: atraumatic, normocephalic, normal inspection Eye exam: Present: normal appearance, PERRL, EOMI. Absent: scleral icterus, conjunctival injection, periorbital swelling ENT exam: Present: normal exam, normal oropharynx, mucous membranes moist Respiratory exam: Present: normal lung sounds bilaterally. Absent: respiratory distress, wheezes, rales, rhonchi, stridor Cardiovascular Exam: Present: regular rate, normal rhythm, normal heart sounds. Absent: systolic murmur, diastolic murmur, rubs, gallop, clicks GI/Abdominal exam: Present: soft, normal bowel sounds. Absent: distended, tenderness, guarding, rebound, rigid Neurological exam: Present: CN II-XII intact. Absent: alert (Drowsy), oriented X3 (Oriented 2) Skin exam: Present: warm, dry, intact, normal color. Absent: rash <Marlena Calix - Last Filed: 09/30/18 04:17> Course Vital Signs 09/29/18 09/30/18 09/30/18 23:37 05:45 08:01 Temperature 98.3 F Pulse Rate 116 H 96 87 Respiratory 18 20 18 Rate Blood Pressure 121/77 116/57 131/81 O2 Sat by Pulse 98 95 95 Oximetry Medical Decision Making - Radiology Data Radiology results: report reviewed, image reviewed <Marlena Calix - Last Filed: 09/30/18 04:17> <Duglas Cee - Last Filed: 09/30/18 11:17> - Medical Decision Making 43-year-old intoxicated male patient presents emergency department today after experiencing a fall. Upon arrival patient does appear to be heavily intoxicated. Alcohol level was 255. CT brain and C-spine was obtained and showed no acute abnormalities. Patient will be sober at 10:15 AM. Care of be handed off to my attending Dr. Shipley at 0400. (Marlena Calix) Patient requesting discharge. Patient reevaluated by myself, Dr. Cee. Patient resting comfortably in bed. Patient is a no 3 and steady gait. Patie nt denies any complaints. Patient denies any injury from fall earlier. (Duglas Cee) - Lab Data Lab Results 09/30/18 Range/Units 01:27 Serum Alcohol 255 H* mg/dL - Radiology Data CT head without contrast was obtained. Impression by Dr. Menjivar shows no acute hemorrhage, hydrocephalus, or mass effect. CT of the cervical spine was obtained and showed no acute cervical abnormalities. (Marlena Calix) Disposition <Marlena Calix - Last Filed: 09/30/18 04:17> Is patient prescribed a controlled substance at d/c from ED?: No Time of Disposition: 11:17 <Duglas Cee - Last Filed: 09/30/18 11:17> Clinical Impression: Fall, Alcohol intoxication Disposition: HOME SELF-CARE Condition: Stable Instructions (If sedation given, give patient instructions): Abuse of Alcohol (ED) Additional Instructions: Decrease and discontinue alcohol use. Return to the emergency department for confusion, weakness, worsening symptoms or other concerns. Referrals: Giorgio Pathak MD [REFERRING] - 1-2 days
[2018-09-30 08:03] VITALS: RESP 18
[2018-09-30 11:18] VITALS: BP 149/93; PULSE 72
== END 2018-09-30 11:24 | disposition home or self-care (01) ==
LOC: EC 23:34
DX: F10.129 Alcohol abuse with intoxication, unspecified (principal); F17.200 Nicotine dependence, unspecified, uncomplicated; W19.XXXA Unspecified fall, initial encounter; Y92.481 Parking lot as the place of occurrence of the external cause; Y90.7 Blood alcohol level of 200-239 mg/100 ml
CPT/HCPCS: 36415; 72125; 70450; 99284; G0480; 80320

== ENCOUNTER 2019-11-04 21:55 | Emergency (ER) | payer OTHER ==
[2019-11-04 22:17] VITALS: TEMP 98.5
--- NOTE | 2019-11-04 23:20 | CT ---
EXAMINATION TYPE: CT brain cspine wo con DATE OF EXAM: 11/04/2019 COMPARISON: 09/30/2018 HISTORY: ETOH Headache. Neck pain CT DLP: 1697.3 mGycm Automated exposure control for dose reduction was used. Ventricles and sulci appear normal. There is no mass effect nor midline shift. There is no sign of in tracranial hemorrhage. The calvarium is intact. There is no evidence of cerebral edema. Skull base is intact. There is normal aeration of the temporal bones. There is some mild straightening of the cervical spine. There is anterior spurring from C4 to see C7. Posterior elements are intact. Facet joints are intact. I see no bony destructive process. Preverteb ral soft tissues are not enlarged. There is no evidence of cervical spine fracture. IMPRESSION: Negative CT scan of the brain. No change. Mild multilevel spondylotic changes in the cervical spine without change. No fracture.
--- NOTE | 2019-11-04 23:28 | ED ---
General Adult HPI - General Chief complaint: Fall Stated complaint: ETOH, Fall Time Seen by Provider: 11/04/19 22:23 Source: patient - History of Present Illness Initial comments: 44 year-old male patient who is intoxicated presents to the emergency department today for evaluation after having a fall. Patient was outside the hospital under the ambulance bay when EMS personnel witnessed him have a fall. Patient states he did hit his head he is reporting neck pain. Patient does admit to drinking today. He denies any back pain. Denies any pain to his extremities. Denies numbness or tingling to the extremities. He is requesting food. Patient denies any chest pain, shortness of breath, dizziness, weakness, abdominal pain, nausea, vomiting, or difficulties with bowel movements or urination. - Related Data Previous Rx's Medication Instructions Recorded Ibuprofen [Motrin] 600 mg PO Q8HR PRN #30 tab 01/21/18 Amoxicillin/Potassium Clav 1 each PO Q12HR 7 Days #14 tab 03/07/18 [Augmentin 875-125 Tablet] Fluticasone Propionate [Flonase 1 - 2 spray EA NOSTRIL DAILY 5 03/07/18 Allergy Relief] Days ml Allergies Allergy/AdvReac Type Severity Reaction Status Date / Time No Known Allergies Allergy Verified 11/04/19 22:17 Review of Systems ROS Statement: Those systems with pertinent positive or pertinent negative responses have been documented in the HPI. ROS Other: All systems not noted in ROS Statement are negative. Past Medical History Past Medical History: Hypertension, Seizure Disorder Additional Past Medical History / Comment(s): glaucoma History of Any Multi-Drug Resistant Organisms: None Reported Past Surgical History: Bowel Resection Past Psychological History: Anxiety, Bipolar, Depression, Schizophrenia Smoking Status: Current every day smoker Past Alcohol Use History: Occasional Past Drug Use History: Marijuana General Exam General appearance: alert, in no apparent distress, other (Physical well- developed, well-nourished adult male patient who is obviously intoxicated. Vital signs upon presentation are temperature 98.5F, pulse 95, respirations 19, blood pressure 127/80, pulse ox 95% on room air.) Head exam: Present: atraumatic, normocephalic, normal inspection Eye exam: Present: normal appearance, PERRL, EOMI. Absent: scleral icterus, conjunctival injection, periorbital swelling ENT exam: Present: normal exam, normal oropharynx, mucous membranes moist Neck exam: Present: normal inspection, full ROM, other (Nontender, no step-off, no deformity to firm midline palpation of the posterior cervical spine. Full range of motion without pain or limitation.). Absent: tenderness, meningismus, lymphadenopathy Respiratory exam: Present: normal lung sounds bilaterally. Absent: respiratory distress, wheezes, rales, rhonchi, stridor Cardiovascular Exam: Present: regular rate, normal rhythm, normal heart sounds. Absent: systolic murmur, diastolic murmur, rubs, gallop, clicks GI/Abdominal exam: Present: soft, normal bowel sounds. Absent: distended, tenderness, guarding, rebound, rigid Back exam: Present: normal inspection, other (Nontender, no step-off, no deformity to firm midline palpation of the thoracic and lumbar vertebrae. Full range of motion without pain or limitation.) Neurological exam: Present: oriented X3, CN II-XII intact. Absent: alert (Drowsy) Psychiatric exam: Present: normal affect, normal mood Skin exam: Present: warm, dry, intact, normal color. Absent: rash Course Vital Signs 11/04/19 11/05/19 22:10 00:54 Temperature 98.5 F Pulse Rate 95 78 Respiratory 19 18 Rate Blood Pressure 127/80 111/73 O2 Sat by Pulse 95 95 Oximetry Medical Decision Making - Medical Decision Making 44 year-old male patient presented to the emergency department today for evaluation after experiencing a fall. Physical examination was unremarkable. He is neurologically intact with no focal deficits. There is no spinal tenderness. CT brain and C-spine was obtained and was negative. Patient will be discharged home to follow-up with his primary care physician for recheck in 1-2 days. Return parameters discussed in detail. He verbalizes understanding and agrees with this plan - Radiology Data Radiology results: report reviewed, image reviewed CT brain C-spine without contrast was obtained. Report is reviewed in its entirety. Impression by Dr. James shows negative computed tomography scan of the brain. No change. Mild multilevel spondylotic changes in the cervical spine without change. No fracture. Disposition Clinical Impression: Fall, Alcohol intoxication Disposition: HOME SELF-CARE Condition: Good Instructions (If sedation given, give patient instructions): Alcohol Intoxication (ED), Fall Prevention (ED) Additional Instructions: Follow-up with your primary care physician for recheck in 1-2 days. Return to the emergency department immediately for any new, worsening, or concerning symptoms. Is patient prescribed a controlled substance at d/c from ED?: No Referrals: None,Stated [Primary Care Provider] - 1-2 days Time of Disposition: 00:48
[2019-11-05 00:56] VITALS: BP 111/73; PULSE 78; RESP 18
== END 2019-11-05 00:58 | disposition home or self-care (01) ==
LOC: EC 21:55
DX: F10.129 Alcohol abuse with intoxication, unspecified (principal); W18.09XA Striking against other object with subsequent fall, initial encounter
CPT/HCPCS: 70450; 72125; 99284

== ENCOUNTER 2022-01-17 01:47 | Observation (INO) | payer OTHER ==
[2022-01-17 01:53] VITALS: TEMP 98.7
[2022-01-17] MEDS ORDERED: ACETAMINOPHEN TAB 500 MG TAB PO STA (02:00)
--- NOTE | 2022-01-17 02:07 | ED ---
Head Injury HPI - General Chief complaint: Head Injury Stated complaint: Fall,Head injury,AMS Time Seen by Provider: 01/17/22 01:57 Source: patient, RN notes reviewed Mode of arrival: ambulatory Limitations: no limitations - History of Present Illness Initial comments: This is a pleasant 46-year-old male walked to this facility under his own power. Patient states he was drinking alcohol with friends and fell and hit his head. Patient states she was knocked unconscious for 30 seconds. She complains of a frontal headache. No neck pain. Mild pain with movement of both shoulders. No chest pain or shortness of breath. Patient appears intoxicated, he will give a limited history. Asking for coffee. Denies abdominal pain. Denies other injuries. Review of systems Limited, no chest pain, no neck pain, no abdominal pain, no vomiting. No vision or hearing disturbance. No arm or leg pain. MD Complaint: head injury - Related Data Previous Rx's Medication Instructions Recorded Ibuprofen [Motrin] 600 mg PO Q8HR PRN #30 tab 01/21/18 Amoxicillin/Potassium Clav 1 each PO Q12HR 7 Days #14 tab 03/07/18 [Augmentin 875-125 Tablet] Fluticasone Propionate [Flonase 1 - 2 spray EA NOSTRIL DAILY 5 03/07/18 Allergy Relief] Days ml Allergies/Adverse reactions: Allergies Allergy/AdvReac Type Severity Reaction Status Date / Time No Known Allergies Allergy Verified 01/17/22 01:49 Review of Systems ROS Statement: Those systems with pertinent positive or pertinent negative responses have been documented in the HPI. ROS Other: All systems not noted in ROS Statement are negative. Past Medical History Past Medical History: Hypertension, Seizure Disorder Additional Past Medical History / Comment(s): glaucoma History of Any Multi-Drug Resistant Organisms: None Reported Past Surgical History: Bowel Resection Past Psychological History: Anxiety, Bipolar, Depression, Schizophrenia Smoking Status: Current every day smoker Past Alcohol Use History: Occasional Past Drug Use History: Marijuana General Exam - General Exam Comments Initial Comments: Patient appears to be intoxicated, slurring his speech. Able give a limited history. Head appears normocephalic/atraumatic hold the patient states he struck his head and was knocked out for 30 seconds. General appearance: alert, in no apparent distress Head exam: Present: other (Mild occipital hematoma noted. No step-off. No crepitus) Eye exam: Present: normal appearance, PERRL, EOMI. Absent: scleral icterus, conjunctival injection, periorbital swelling ENT exam: Present: normal exam, mucous membranes moist Neck exam: Present: normal inspection, full ROM. Absent: tenderness, meningismus, lymphadenopathy Respiratory exam: Present: normal lung sounds bilaterally. Absent: respiratory distress, wheezes, rales, rhonchi, stridor Cardiovascular Exam: Present: regular rate, normal rhythm, normal heart sounds. Absent: systolic murmur, diastolic murmur, rubs, gallop, clicks GI/Abdominal exam: Present: soft, normal bowel sounds. Absent: distended, tenderness, guarding, rebound, rigid Extremities exam: Present: normal inspection, full ROM, normal capillary refill. Absent: tenderness, pedal edema, joint swelling, calf tenderness Back exam: Present: normal inspection Neurological exam: Present: alert, CN II-XII intact, other (Intoxicated) Psychiatric exam: Present: other (Intoxicated with slurred speech) Skin exam: Present: warm, dry, intact, normal color. Absent: rash Course Vital Signs 01/17/22 01:49 Temperature 98.7 F Pulse Rate 81 Respiratory 16 Rate Blood Pressure 122/83 O2 Sat by Pulse 98 Oximetry - Consultations Consultation #1: Case discussed with Dr. Pena., Patient will be placed in observation status for alcohol intoxication and unsteady gait Medical Decision Making - Medical Decision Making The case was discussed in detail with ED attending physician. Presentation, findings, treatment plan discussed in detail. Patient under observation status for alcohol intoxication and closed head injury. Patient has unsteady gait and unable to ambulate safely. She currently intoxicated, CIWA score is essentially 0 - Lab Data Result diagrams: 01/17/22 02:35 01/17/22 02:35 Lab Results 01/17/22 01/17/22 01/17/22 Range/Units 02:29 02:35 02:35 WBC 5.5 (3.8-10.6) k/uL RBC 3.63 L (4.30-5.90) m/uL Hgb 11.3 L (13.0-17.5) gm/dL Hct 33.2 L (39.0-53.0) % MCV 91.5 (80.0-100.0) fL MCH 31.2 (25.0-35.0) pg MCHC 34.1 (31.0-37.0) g/dL RDW 13.5 (11.5-15.5) % Plt Count 263 (150-450) k/uL MPV 8.0 Neutrophils % 53 % Lymphocytes % 38 % Monocytes % 3 % Eosinophils % 2 % Basophils % 0 % Neutrophils # 3.0 (1.3-7.7) k/uL Lymphocytes # 2.1 (1.0-4.8) k/uL Monocytes # 0.2 (0-1.0) k/uL Eosinophils # 0.1 (0-0.7) k/uL Basophils # 0.0 (0-0.2) k/uL Sodium 140 (137-145) mmol/L Potassium 4.2 (3.5-5.1) mmol/L Chloride 106 (98-107) mmol/L Carbon Dioxide 20 L (22-30) mmol/L Anion Gap 14 mmol/L BUN 15 (9-20) mg/dL Creatinine 0.82 (0.66-1.25) mg/dL Est GFR (CKD-EPI)AfAm >90 (>60 ml/min/1.73 sqM) Est GFR (CKD-EPI)NonAf >90 (>60 ml/min/1.73 sqM) Glucose 88 (74-99) mg/dL Calcium 8.3 L (8.4-10.2) mg/dL Magnesium 1.9 (1.6-2.3) mg/dL Total Bilirubin 0.2 (0.2-1.3) mg/dL AST 35 (17-59) U/L ALT 22 (4-49) U/L Alkaline Phosphatase 70 (38-126) U/L Total Protein 7.0 (6.3-8.2) g/dL Albumin 3.9 (3.5-5.0) g/dL Amylase 86 (30-110) U/L Urine Opiates Screen Not Detected (NotDetected) Ur Oxycodone Screen Not Detected (NotDetected) Urine Methadone Screen Not Detected (NotDetected) Ur Propoxyphene Screen Not Detected (NotDetected) Ur Barbiturates Screen Not Detected (NotDetected) U Tricyclic Antidepress Not Detected (NotDetected) Ur Phencyclidine Scrn Not Detected (NotDetected) Ur Amphetamines Screen Not Detected (NotDetected) U Methamphetamines Scrn Not Detected (NotDetected) U Benzodiazepines Scrn Not Detected (NotDetected) Urine Cocaine Screen Not Detected (NotDetected) U Marijuana (THC) Screen Not Detected (NotDetected) Serum Alcohol 269 H* mg/dL Disposition Clinical Impression: Closed head injury, Alcohol intoxication, Unsteady gait, Normocytic anemia Disposition: ADMITTED IP TO THIS HOSP Condition: Fair Is patient prescribed a controlled substance at d/c from ED?: No Referrals: None,Stated [Primary Care Provider] - 1-2 days Time of Disposition: 04:04 Decision to Admit Reason: Admit from EC Decision Time: 04:05
[2022-01-17] MEDS ORDERED: 0.9% NACL WITH KCL 20 MEQ/L 1,000 ML with THIAMINE 100 MG, FOLIC ACID 1 MG IV SCH ×3 (02:30)
--- NOTE | 2022-01-17 02:33 | CT ---
EXAMINATION TYPE: CT brain wo con DATE OF EXAM: 01/17/2022 COMPARISON: 11/04/2019 HISTORY: Fall CT DLP: 1202.8 mGycm Automated exposure control for dose reduction was used. Images obtained of the brain without contrast. Ventricles have normal size. There is no mass effect or midline shift. No sign of intracranial hemorr debra. The calvarium is intact. There is normal aeration of the mastoid sinuses. IMPRESSION: Negative unenhanced head CT scan.
[2022-01-17 02:43] LABS: Basophils % (A) 0 %; Eosinophils # (A) 0.1 k/uL (0-0.7); Eosinophils % (A) 2 %; HCT 33.2 % (39.0-53.0); HGB 11.3 gm/dL (13.0-17.5); Lymphocytes # (A) 2.1 k/uL (1.0-4.8); Lymphocytes % (A) 38 %; MCH 31.2 pg (25.0-35.0); MCHC 34.1 g/dL (31.0-37.0); MCV 91.5 fL (80.0-100.0); Monocytes # (A) 0.2 k/uL (0-1.0); Monocytes % (A) 3 %; Neutrophils % (A) 53 %; Platelet Count 263 k/uL (150-450); RBC 3.63 m/uL (4.30-5.90); RDW 13.5 % (11.5-15.5); WBC 5.5 k/uL (3.8-10.6)
[2022-01-17 02:47] LABS: Amphetamine Screen,Urine Not Detected (NotDetected); Barbiturate Screen,Urine Not Detected (NotDetected); Benzodiazepines Screen,Urine Not Detected (NotDetected); Cocaine Screen,Urine Not Detected (NotDetected); Methadone Screen, Urine Not Detected (NotDetected); Opiate Screen,Urine Not Detected (NotDetected); Oxycodone Screen, Urine Not Detected (NotDetected); Phencyclidine Screen,Urine Not Detected (NotDetected); Tricyclic Antidepressant,Urine Not Detected (NotDetected); Urn Cannabinoid Scrn Not Detected (NotDetected)
[2022-01-17 03:49] LABS: ALT 22 U/L (4-49); AST 35 U/L (17-59); African American GFR (CKD) >90 (>60 ml/min/1.73 sqM); Albumin 3.9 g/dL (3.5-5.0); Alkaline Phosphatase 70 U/L (38-126); Amylase 86 U/L (30-110); Anion Gap 14 mmol/L; Blood Urea Nitrogen 15 mg/dL (9-20); Calcium 8.3 mg/dL (8.4-10.2); Carbon Dioxide 20 mmol/L (22-30); Chloride 106 mmol/L (98-107); Glucose 88 mg/dL (74-99); Magnesium 1.9 mg/dL (1.6-2.3); Non-African American GFR(CKD) >90 (>60 ml/min/1.73 sqM); Potassium 4.2 mmol/L (3.5-5.1); Sodium 140 mmol/L (137-145); Total Bilirubin 0.2 mg/dL (0.2-1.3)
[2022-01-17 03:52] LABS: Alcohol 269 mg/dL
[2022-01-17] MEDS ORDERED: ACETAMINOPHEN TAB 325 MG TAB PO PRN (04:07)
[2022-01-17] MEDS ORDERED: NALOXONE 0.4 MG/ML 1 ML VIAL IV PRN (04:07)
[2022-01-17] MEDS ORDERED: ONDANSETRON 4 MG/2 ML VIAL IVP PRN (04:07)
[2022-01-17] MEDS ORDERED: chlordiazePOXIDE 25 MG CAP PO PRN (04:10)
--- NOTE | 2022-01-17 04:52 | P.HPIM ---
History of Present Illness H&P Date: 01/17/22 Patient is a 46-year-old male with a PMH of alcohol abuse who presents to the emergency room with alcohol intoxication and a fall. The patient was sleeping at time of interview, and although would awaken fully, he refused to answer most questions. History thereby is largely obtained from the chart. The patient had reported that he was out drinking with his friends when he had fallen and hit his head and reportedly lost consciousness for 30 seconds. Laboratory evaluation in the emergency room revealed an alcohol level of 269. The patient stated that he did have too much to drink earlier today but refused the elaborate further, he drinks. Review of systems: Pertinent positives and negatives as discussed in HPI, a complete review of systems was performed and all other systems are negative. Physical examination: General: non toxic, no distress, appears at stated age, overweight Derm: no unusual rashes/lesions, warm Head: atraumatic, normocephalic, symmetric Eyes: EOMI, no lid lag, anicteric sclera, pupils equal round reactive to light ENT: Nose and ears atraumatic Neck: No cervical lymphadenopathy, trachea midline, supple Mouth: no lip lesion, mucus membranes moist Cardiovascular: S1S2 reg, no murmur, positive dorsalis pedis pulse bilateral, no edema Lungs: CTA bilateral, no rhonchi, no rales, no accessory muscle use Abdominal: soft, nontender to palpation, no guarding Ext: muscle strength 5 out of 5 in all 4 extremities grossly, no gross muscle atrophy, no contractures, Neuro: CN II-XI grossly intact, no gross focal neuro deficits Psych: Lethargic, answering questions appropriately, oriented Assessment/plan Alcohol intoxication, impending withdrawal -CIWA Protocol -Fall precautions -Neurochecks -Monitor electrolytes -IVFs -Thiamine DVT prophylaxis -Hepari subq The patient is admitted with an anticipated less than 2 midnight stay for evaluation of EtOH . CODE STATUS: Full Code Discussed with: Patient Anticipated discharge date: in am Anticipated discharge place: Home Past Medical History Past Medical History: Hypertension, Seizure Disorder Additional Past Medical History / Comment(s): glaucoma History of Any Multi-Drug Resistant Organisms: None Reported Past Surgical History: Bowel Resection Past Psychological History: Anxiety, Bipolar, Depression, Schizophrenia Smoking Status: Current every day smoker Past Alcohol Use History: Occasional Past Drug Use History: Marijuana - Past Family History Father Family Medical History: Unable to Obtain Additional Family Medical History / Comment(s): Patient refused to answer questions Medications and Allergies Home Medications Medication Instructions Recorded Confirmed Type Ibuprofen [Motrin] 600 mg PO Q8HR PRN #30 tab 01/21/18 01/29/18 Rx Amoxicillin/Potassium Clav 1 each PO Q12HR 7 Days #14 tab 03/07/18 Rx [Augmentin 875-125 Tablet] Fluticasone Propionate [Flonase 1 - 2 spray EA NOSTRIL DAILY 5 03/07/18 Rx Allergy Relief] Days ml Allergies Allergy/AdvReac Type Severity Reaction Status Date / Time No Known Allergies Allergy Verified 01/17/22 01:49 Physical Exam Vitals: Vital Signs Temp Pulse Resp BP Pulse Ox 01/17/22 01:49 98.7 F 81 16 122/83 98 Intake and Output 01/16/22 01/16/22 01/17/22 14:59 22:59 06:59 Other: Weight 81.647 kg Results CBC & Chem 7: 01/17/22 02:35 01/17/22 02:35 Labs: Abnormal Lab Results - Last 24 Hours (Table) 01/17/22 01/17/22 Range/Units 02:35 02:35 RBC 3.63 L (4.30-5.90) m/uL Hgb 11.3 L (13.0-17.5) gm/dL Hct 33.2 L (39.0-53.0) % Carbon Dioxide 20 L (22-30) mmol/L Calcium 8.3 L (8.4-10.2) mg/dL Serum Alcohol 269 H* mg/dL
[2022-01-17] MEDS ORDERED: LORazepam 2 MG/ML INJ IV PRN ×3 (05:09)
[2022-01-17 09:43] VITALS: BP 130/84; PULSE 84; RESP 16
--- NOTE | 2022-01-17 10:06 | P.DS ---
Providers Date of admission: 01/17/22 04:24 Expected date of discharge: 01/17/22 Attending physician: Jean Villa MD Primary care physician: Stated None Hospital Course: Patient is a 46-year-old male with a PMH of alcohol abuse who presents to the emergency room with alcohol intoxication and a fall. The patient was sleeping at time of interview, and although would awaken fully, he refused to answer most questions. History thereby is largely obtained from the chart. The patient had reported that he was out drinking with his friends when he had fallen and hit his head and reportedly lost consciousness for 30 seconds. Laboratory e valuation in the emergency room revealed an alcohol level of 269. The patient stated that he did have too much to drink earlier today but refused the elaborate further, he drinks. Patient left AGAINST MEDICAL ADVICE prior to being seen. Physical exam was not done. Discharge diagnosis: Alcohol intoxication with impending withdrawal Normocytic anemia Metabolic acidosis Hypocalcemia Patient Condition at Discharge: Fair Plan - Discharge Summary New Discharge Prescriptions: No Action Ibuprofen [Motrin] 600 mg PO Q8HR PRN #30 tab PRN Reason: Pain Amoxicillin/Potassium Clav [Augmentin 875-125 Tablet] 1 each PO Q12HR 7 Days #14 tab Fluticasone Propionate [Flonase Allergy Relief] 1 - 2 spray EA NOSTRIL DAILY 5 Days ml Discharge Medication List Ibuprofen [Motrin] 600 mg PO Q8HR PRN #30 tab 01/21/18 [Rx] Amoxicillin/Potassium Clav [Augmentin 875-125 Tablet] 1 each PO Q12HR 7 Days #14 tab 03/07/18 [Rx] Fluticasone Propionate [Flonase Allergy Relief] 1 - 2 spray EA NOSTRIL DAILY 5 Days ml 03/07/18 [Rx] Follow up Appointment(s)/Referral(s): None,Stated [Primary Care Provider] - 1-2 days
[2022-01-17] MEDS ORDERED: THIAMINE 100 MG TAB PO SCH (17:30)
== END 2022-01-17 10:25 | disposition left against medical advice (07) ==
LOC: EC 01:47 → 6NMEDSUR 04:24
PROVIDERS: ADMIT Internal Medicine; ATTEND Internal Medicine
DX: S06.9X1A Unspecified intracranial injury with loss of consciousness of 30 minutes or less, initial encounter (principal); W19.XXXA Unspecified fall, initial encounter; F10.129 Alcohol abuse with intoxication, unspecified; Y90.8 Blood alcohol level of 240 mg/100 ml or more; I10 Essential (primary) hypertension; Z53.29 Procedure and treatment not carried out because of patient's decision for other reasons; E83.51 Hypocalcemia; E87.2 Acidosis; D64.9 Anemia, unspecified; G40.909 Epilepsy, unspecified, not intractable, without status epilepticus; H40.9 Unspecified glaucoma; Z90.49 Acquired absence of other specified parts of digestive tract; F41.9 Anxiety disorder, unspecified; F31.9 Bipolar disorder, unspecified; F20.9 Schizophrenia, unspecified; F17.200 Nicotine dependence, unspecified, uncomplicated; Z79.899 Other long term (current) drug therapy
CPT/HCPCS: 96366 ×2; 96365; 99285; 36415; 80053; 82150; 83735; 85025; 80306; 70450; G0378; G0480; J3411; 80320

== ENCOUNTER 2022-01-18 01:29 | Emergency (ER) | payer OTHER ==
[2022-01-18 04:28] VITALS: BP 123/72; PULSE 75; RESP 16; TEMP 98.2
--- NOTE | 2022-01-18 06:14 | ED ---
General Adult HPI - General Chief complaint: Alcohol Stated complaint: mental health Time Seen by Provider: 01/18/22 06:04 Source: patient, RN notes reviewed, old records reviewed Mode of arrival: ambulatory Limitations: no limitations - History of Present Illness Initial comments: Patient was placed in room 19 after found sleeping in the waiting room for several hours. He is a 46-year-old male presenting with complaints of neck pain after a ground-level fall 2 days ago. He did drink 2 shots of whiskey last night. He denies daily alcohol use. No history of seizures. -: days(s) (2) Location: neck Radiation: non-radiation Quality: aching Associated Symptoms: denies other symptoms Treatments Prior to Arrival: other (2 Shots of whiskey) - Related Data Previous Rx's Medication Instructions Recorded Ibuprofen [Motrin] 600 mg PO Q8HR PRN #30 tab 01/21/18 Amoxicillin/Potassium Clav 1 each PO Q12HR 7 Days #14 tab 03/07/18 [Augmentin 875-125 Tablet] Fluticasone Propionate [Flonase 1 - 2 spray EA NOSTRIL DAILY 5 03/07/18 Allergy Relief] Days ml Allergies Allergy/AdvReac Type Severity Reaction Status Date / Time No Known Allergies Allergy Verified 01/18/22 04:25 Review of Systems ROS Statement: Those systems with pertinent positive or pertinent negative responses have been documented in the HPI. ROS Other: All systems not noted in ROS Statement are negative. Past Medical History Past Medical History: Hypertension, Seizure Disorder Additional Past Medical History / Comment(s): glaucoma History of Any Multi-Drug Resistant Organisms: None Reported Past Surgical History: Bowel Resection Past Psychological History: Anxiety, Bipolar, Depression, Schizophrenia Smoking Status: Current every day smoker Past Alcohol Use History: Heavy Past Drug Use History: Marijuana - Past Family History Father Family Medical History: Unable to Obtain Additional Family Medical History / Comment(s): Patient refused to answer questions General Exam Limitations: no limitations, altered mental status (intoxicated) General appearance: alert, other (Asleep but easily arousable to alert) Head exam: Present: atraumatic Eye exam: Absent: scleral icterus, conjunctival injection, periorbital swelling Neck exam: Present: normal inspection, tenderness, full ROM, other (No evidence of bruising erythema or abrasions). Absent: meningismus, lymphadenopathy, thyromegaly Respiratory exam: Absent: respiratory distress, accessory muscle use Cardiovascular Exam: Present: regular rate GI/Abdominal exam: Present: soft. Absent: distended, tenderness, guarding, rebound, rigid Extremities exam: Present: full ROM, normal capillary refill Neurological exam: Present: alert Expanded Patient oriented to: Present: person Speech: Present: fluid speech Motor strength exam: RUE: 5, LUE: 5, RLE: 5, LLE: 5 Eye Response: (3) open to voice Motor Response: (6) obeys commands Verbal Response: (4) confused conversation [place] Total: 13 Psychiatric exam: Present: normal affect, normal mood Skin exam: Present: warm, dry, normal color. Absent: cyanosis, diaphoretic Course Vital Signs 01/18/22 04:25 Temperature 98.2 F Pulse Rate 75 Respiratory 16 Rate Blood Pressure 123/72 O2 Sat by Pulse 98 Oximetry - Reevaluation(s) Reevaluation #1: 01/18/22 08:14 Patient ambulating in the vides with steady gait. He was given breakfast. No distress. Time: 08:14 Medical Decision Making - Medical Decision Making Patient was seen yesterday in the emergency room for alcohol intoxication and fall. He was admitted to the hospital for alcohol abuse however he ended up leaving AGAINST MEDICAL ADVICE. He returns to the emergency room again today with similar story. He was initially asleep but easily arousable to alert. His BAT was 169. He is following commands and moving all extremities. There is no evidence of trauma. Due to his intoxication and complaints of recent fall with neck pain, a CT was ordered. CT shows no mass or midline shift. No intracranial hemorrhage. Skull is intact. Normal alignment of the cervical C-spine with no compression fractures noted. There is hypertrophic degenerative disc changes, no change compared to old exam. Patient is clinically sober and oriented 4. He ate a good breakfast and now states he is ready to go home. States he lives with his sister. Vital signs are stable. He was directed to stop drinking alcohol in excess. Case discussed with Dr. Barney. Disposition Clinical Impression: Alcohol intoxication, Fall Disposition: HOME SELF-CARE Condition: Good Instructions (If sedation given, give patient instructions): Alcohol Intoxication (ED) Additional Instructions: Do not drink alcohol in excess. Return to the emergency room with any new or concerning symptoms. Follow-up with the primary care doctor next week. Is patient prescribed a controlled substance at d/c from ED?: No Referrals: None,Stated [Primary Care Provider] - 1-2 days Time of Disposition: 08:26
--- NOTE | 2022-01-18 06:58 | CT ---
EXAMINATION TYPE: CT brain cspine wo con DATE OF EXAM: 01/18/2022 COMPARISON: 11/04/2019 HISTORY: Pain CT DLP: 1536.6 mGycm Automated exposure control for dose reduction was used. Images of the brain and cervical spine obtained with no contrast. Ventricles have normal size. There is no mass effect or midline shift. No sign of intracranial hemorr debra. Calvarium is intact. There is normal aeration of the mastoid sinuses. Skull base is intact. The cervical vertebra have normal alignment. There is hypertrophic anterior spurring throughout the c ervical spine and larger at C5-6 and C6-7. Posterior elements are intact. Facet joints are intact. No compression fracture. IMPRESSION: Hypertrophic degenerative disc changes in the cervical spine. No fracture. No change compared to old exam. Negative CT scan of the brain. No change compared to old exam.
== END 2022-01-18 09:03 | disposition home or self-care (01) ==
LOC: EC 01:29
DX: M54.2 Cervicalgia (principal); F10.129 Alcohol abuse with intoxication, unspecified; I10 Essential (primary) hypertension; Z86.69 Personal history of other diseases of the nervous system and sense organs; F17.200 Nicotine dependence, unspecified, uncomplicated; W18.30XA Fall on same level, unspecified, initial encounter
CPT/HCPCS: 70450; 72125; 82075; 99284

== ENCOUNTER 2022-01-18 21:07 | Observation (INO) | payer OTHER ==
[2022-01-18 22:24] LABS: Basophils % (A) 0 %; Eosinophils # (A) 0.1 k/uL (0-0.7); Eosinophils % (A) 1 %; HCT 33.5 % (39.0-53.0); HGB 11.1 gm/dL (13.0-17.5); Hypochromasia Slight; Lymphocytes # (A) 2.2 k/uL (1.0-4.8); Lymphocytes % (A) 56 %; MCH 30.4 pg (25.0-35.0); MCHC 33.1 g/dL (31.0-37.0); MCV 91.8 fL (80.0-100.0); Mean Platelet Volume 10.8; Monocytes # (A) 0.2 k/uL (0-1.0); Monocytes % (A) 4 %; Neutrophils # (A) 1.4 k/uL (1.3-7.7); Neutrophils % (A) 35 %; Poikilocytosis Slight; RBC 3.65 m/uL (4.30-5.90); RDW 14.1 % (11.5-15.5)
[2022-01-18 22:31] LABS: Platelet Count 110 k/uL (150-450)
[2022-01-18 23:16] LABS: ALT 26 U/L (4-49); African American GFR (CKD) >90 (>60 ml/min/1.73 sqM); Albumin 3.7 g/dL (3.5-5.0); Anion Gap 13 mmol/L; Blood Urea Nitrogen 15 mg/dL (9-20); Carbon Dioxide 21 mmol/L (22-30); Chloride 108 mmol/L (98-107); Glucose 96 mg/dL (74-99); Non-African American GFR(CKD) >90 (>60 ml/min/1.73 sqM); Sodium 142 mmol/L (137-145); Total Bilirubin 0.4 mg/dL (0.2-1.3); Total Protein 6.8 g/dL (6.3-8.2)
--- NOTE | 2022-01-18 23:25 | ED ---
Alcohol HPI - General Chief Complaint: Alcohol Stated Complaint: ETOH Time Seen by Provider: 01/18/22 21:10 Source: patient, EMS Mode of arrival: EMS Limitations: no limitations - History of Present Illness Initial Comments: 46-year-old male with past medical history of hypertension, seizure disorder presents to the emergency department intoxicated. EMS were called to a restaurant where there was a patient found unresponsive. He did admit to drinking. He denies any injuries from his intoxicated status. Patient cannot provide any further history at this time - Related Data Previous Rx's Medication Instructions Recorded Ibuprofen [Motrin] 600 mg PO Q8HR PRN #30 tab 01/21/18 Amoxicillin/Potassium Clav 1 each PO Q12HR 7 Days #14 tab 03/07/18 [Augmentin 875-125 Tablet] Fluticasone Propionate [Flonase 1 - 2 spray EA NOSTRIL DAILY 5 03/07/18 Allergy Relief] Days ml Allergies Allergy/AdvReac Type Severity Reaction Status Date / Time No Known Allergies Allergy Verified 01/18/22 04:25 Review of Systems ROS Statement: Those systems with pertinent positive or pertinent negative responses have been documented in the HPI. ROS Other: All systems not noted in ROS Statement are negative. Past Medical History Past Medical History: Hypertension, Seizure Disorder Additional Past Medical History / Comment(s): glaucoma History of Any Multi-Drug Resistant Organisms: None Reported Past Surgical History: Bowel Resection Past Psychological History: Anxiety, Bipolar, Depression, Schizophrenia Smoking Status: Current every day smoker Past Alcohol Use History: Heavy Past Drug Use History: Marijuana - Past Family History Father Family Medical History: Unable to Obtain Additional Family Medical History / Comment(s): Patient refused to answer questions General Exam Limitations: altered mental status General appearance: appears intoxicated Head exam: Present: atraumatic, normocephalic, normal inspection Eye exam: Present: normal appearance, PERRL, EOMI. Absent: scleral icterus, conjunctival injection, periorbital swelling Respiratory exam: Present: normal lung sounds bilaterally. Absent: respiratory distress, wheezes, rales, rhonchi, stridor Cardiovascular Exam: Present: regular rate, normal rhythm, normal heart sounds. Absent: systolic murmur, diastolic murmur, rubs, gallop, clicks GI/Abdominal exam: Present: soft Neurological exam: Present: altered Psychiatric exam: Present: flat affect Course Vital Signs 01/18/22 21:08 Temperature 98.0 F Pulse Rate 85 Respiratory 16 Rate Blood Pressure 131/83 O2 Sat by Pulse 97 Oximetry Medical Decision Making - Medical Decision Making Upon arrival the patient is placed into room 4. Laboratory testing is performed and demonstrates a alcohol 323. Patient will be admitted for alcohol intoxication - Lab Data Result diagrams: 01/18/22 22:08 01/18/22 22:41 Lab Results 01/18/22 01/18/22 Range/Units 22:08 22:41 WBC 4.0 (3.8-10.6) k/uL RBC 3.65 L (4.30-5.90) m/uL Hgb 11.1 L (13.0-17.5) gm/dL Hct 33.5 L (39.0-53.0) % MCV 91.8 (80.0-100.0) fL MCH 30.4 (25.0-35.0) pg MCHC 33.1 (31.0-37.0) g/dL RDW 14.1 (11.5-15.5) % Plt Count 110 L D (150-450) k/uL MPV 10.8 Neutrophils % 35 % Lymphocytes % 56 % Monocytes % 4 % Eosinophils % 1 % Basophils % 0 % Neutrophils # 1.4 (1.3-7.7) k/uL Lymphocytes # 2.2 (1.0-4.8) k/uL Monocytes # 0.2 (0-1.0) k/uL Eosinophils # 0.1 (0-0.7) k/uL Basophils # 0.0 (0-0.2) k/uL Hypochromasia Slight Poikilocytosis Slight Sodium 142 (137-145) mmol/L Potassium 4.5 (3.5-5.1) mmol/L Chloride 108 H (98-107) mmol/L Carbon Dioxide 21 L (22-30) mmol/L Anion Gap 13 mmol/L BUN 15 (9-20) mg/dL Creatinine 0.92 (0.66-1.25) mg/dL Est GFR (CKD-EPI)AfAm >90 (>60 ml/min/1.73 sqM) Est GFR (CKD-EPI)NonAf >90 (>60 ml/min/1.73 sqM) Glucose 96 (74-99) mg/dL Calcium 8.0 L (8.4-10.2) mg/dL Total Bilirubin 0.4 (0.2-1.3) mg/dL AST 39 (17-59) U/L ALT 26 (4-49) U/L Alkaline Phosphatase 58 (38-126) U/L Total Protein 6.8 (6.3-8.2) g/dL Albumin 3.7 (3.5-5.0) g/dL Serum Alcohol 323 H* mg/dL Disposition Clinical Impression: Alcohol intoxication Disposition: ADMITTED IP TO THIS HOSP Condition: Stable Is patient prescribed a controlled substance at d/c from ED?: No Referrals: None,Stated [Primary Care Provider] - 1-2 days Time of Disposition: 23:51 Decision to Admit Reason: Admit from EC Decision Date: 01/18/22 Decision Time: 23:51
[2022-01-18 23:30] LABS: Alcohol 323 mg/dL; Potassium 4.5 mmol/L (3.5-5.1)
[2022-01-18 23:31] LABS: AST 39 U/L (17-59); Alkaline Phosphatase 58 U/L (38-126)
[2022-01-18] MEDS ORDERED: NALOXONE 0.4 MG/ML 1 ML VIAL IV PRN (23:51)
[2022-01-19] MEDS: SODIUM CHLORIDE 0.9% 1,000 ML IV SCH ×2 (00:43→04:54)
[2022-01-19] MEDS ORDERED: LORazepam 2 MG/ML INJ IV PRN ×4 (02:42)
[2022-01-19] MEDS ORDERED: DEXTROSE 5%-0.45% NACL 1,000 ML IV SCH (02:45)
--- NOTE | 2022-01-19 02:49 | P.HPIM ---
History of Present Illness H&P Date: 01/19/22 Chief Complaint: "" Alcohol intoxication 46-year-old male with alcohol abuse was recently hospitalized for alcohol intoxication and sustaining a fall. He comes back today after been found unresponsive in the restaurant intoxicated with alcohol patient doesn't recall the details however he started waking up when he came into the hospital. He denies any headache changes in his vision or hearing denies any back pain denies any chest pain abdominal pain denies any GI bleeding denies any fevers chills shortness of breath coughing denies any changes in bowel or urinary habits. He denies any complaints at this time Patient does admit to heavy alcohol consumption on daily basis Blood work in the ED showed chronic mild anemia and thrombocytopenia Review of Systems Pertinent positives as noted in HPI. All other systems were reviewed and are negative Past Medical History Past Medical History: Hypertension, Seizure Disorder Additional Past Medical History / Comment(s): glaucoma History of Any Multi-Drug Resistant Organisms: None Reported Past Surgical History: Bowel Resection Past Psychological History: Anxiety, Bipolar, Depression, Schizophrenia Smoking Status: Current every day smoker Past Alcohol Use History: Heavy Past Drug Use History: Marijuana - Past Family History Father Additional Family Medical History / Comment(s): Patient denies history of CAD in the family Medications and Allergies Home Medications Medication Instructions Recorded Confirmed Type Ibuprofen [Motrin] 600 mg PO Q8HR PRN #30 tab 01/21/18 01/29/18 Rx Amoxicillin/Potassium Clav 1 each PO Q12HR 7 Days #14 tab 03/07/18 Rx [Augmentin 875-125 Tablet] Fluticasone Propionate [Flonase 1 - 2 spray EA NOSTRIL DAILY 5 03/07/18 Rx Allergy Relief] Days ml Allergies Allergy/AdvReac Type Severity Reaction Status Date / Time No Known Allergies Allergy Verified 01/18/22 04:25 Physical Exam Vitals: Vital Signs Temp Pulse Resp BP Pulse Ox 01/18/22 21:08 98.0 F 85 16 131/83 97 Intake and Output 01/18/22 01/18/22 01/19/22 14:59 22:59 06:59 Intake Total 500 Balance 500 Intake: Oral 500 Other: Voiding Method Toilet Weight 81.647 kg 81.647 kg Constitutional: No acute distress, conversant, pleasant Eyes: Anicteric sclerae, moist conjunctiva, Pupils equal round reactive to light ENMT: NC/AT Oropharynx clear, no erythema, or exudates Neck: Supple, , no masses, or JVD No carotid bruits No thyromegaly Lungs: Clear to auscultation Clear to percussion Normal respiratory effort, no accessory muscle use Cardiovascular: Heart regular in rate and rhythm, No murmurs, gallops, or rubs No peripheral edema Abdominal: Soft Nontender, no guarding, rebound or rigidity Abdomen moving with respiration Normoactive bowel sounds No hepatomegaly, No splenomegaly No palpable mass No abdominal wall hernia noted Skin: Normal temperature, tone, texture, turgor No induration No subcutaneous nodules No rash, lesions No ulcers Extremities: No digital cyanosis No clubbing Pedal pulses intact and symmetrical Radial pulses intact and symmetrical No calf tenderness Psychiatric: Alert and oriented to person, place and time Appropriate affect fair judgement Neuro Muscles Strength 5/5 in all 4 extremities Sensation to light touch grossly present throughout Cranial nerves II-XII grossly intact No focal sensory deficits Lymphatics: no palpable cervical or supraclavicular , or inguinal lymph nodes Results CBC & Chem 7: 01/18/22 22:08 01/18/22 22:41 Labs: Abnormal Lab Results - Last 24 Hours (Table) 01/18/22 01/18/22 Range/Units 22:08 22:41 RBC 3.65 L (4.30-5.90) m/uL Hgb 11.1 L (13.0-17.5) gm/dL Hct 33.5 L (39.0-53.0) % Plt Count 110 L D (150-450) k/uL Chloride 108 H (98-107) mmol/L Carbon Dioxide 21 L (22-30) mmol/L Calcium 8.0 L (8.4-10.2) mg/dL Serum Alcohol 323 H* mg/dL Assessment and Plan Assessment: Acute alcohol intoxication with delirium, improving Monitor for alcohol withdrawal syndrome Seizure precautions Fall precautions Benzos per CIWA scale Thiamine daily Folic acid daily IV fluid hydration Protonix for GI prophylaxis Bicytopenia with chronic mild anemia and thrombocytopenia Patient denies GI bleeding Continue to monitor Tobacco smoking Patient counseled to quit smoking Nicotine replacement therapy offered DVT prophylaxis mechanical Full code
[2022-01-19 03:27] LABS: Basophils % (A) 0 %; Eosinophils # (A) 0.1 k/uL (0-0.7); Eosinophils % (A) 2 %; HCT 33.1 % (39.0-53.0); HGB 10.7 gm/dL (13.0-17.5); Lymphocytes # (A) 2.2 k/uL (1.0-4.8); Lymphocytes % (A) 57 %; MCH 29.9 pg (25.0-35.0); MCHC 32.2 g/dL (31.0-37.0); MCV 92.7 fL (80.0-100.0); Mean Platelet Volume 8.6; Monocytes # (A) 0.1 k/uL (0-1.0); Monocytes % (A) 3 %; Neutrophils # (A) 1.4 k/uL (1.3-7.7); Neutrophils % (A) 35 %; RBC 3.58 m/uL (4.30-5.90); RDW 13.8 % (11.5-15.5); WBC 3.9 k/uL (3.8-10.6)
[2022-01-19 03:29] LABS: Platelet Count 269 k/uL (150-450)
[2022-01-19 03:48] VITALS: RESP 18
[2022-01-19 04:37] LABS: African American GFR (CKD) >90 (>60 ml/min/1.73 sqM); Anion Gap 12 mmol/L; Blood Urea Nitrogen 13 mg/dL (9-20); Carbon Dioxide 23 mmol/L (22-30); Chloride 107 mmol/L (98-107); Glucose 94 mg/dL (74-99); Non-African American GFR(CKD) >90 (>60 ml/min/1.73 sqM); Potassium 4.1 mmol/L (3.5-5.1); Sodium 142 mmol/L (137-145)
[2022-01-19] MEDS ORDERED: PANTOPRAZOLE 40 MG TABLET PO SCH (07:30)
[2022-01-19 08:45] VITALS: BP 128/75; PULSE 97; TEMP 98.3
[2022-01-19] MEDS ORDERED: FOLIC ACID 1 MG TAB PO SCH (09:00)
--- NOTE | 2022-01-19 10:57 | P.DS ---
Providers Date of admission: 01/18/22 23:51 Expected date of discharge: 01/26/22 Attending physician: Mark Jordan MD Primary care physician: Stated None Hospital Course: Discharge Diagnosis: Acute alcohol intoxication Chronic normocytic anemia Tobacco use disorder Hospital Course: 46-year-old male with alcohol abuse was recently hospitalized for alcohol intoxication and sustaining a fall. He comes back today after been found unresponsive in the restaurant intoxicated with alcohol patient doesn't recall the details however he started waking up when he came into the hospital. He denies any headache changes in his vision or hearing denies any back pain denies any chest pain abdominal pain denies any GI bleeding denies any fevers chills shortness of breath coughing denies any changes in bowel or urinary habits. He denies any complaints at this time Patient does admit to heavy alcohol consumption on daily basis. Alcohol level and the blood was in the 300s upon admission, labwork revealed normocytic anemia. The patient is feeling well this morning and was asking to go home. Patient seen and examined at bedside. Physical exam: Vital signs reviewed and stable. General: [nontoxic], [no distress], [appears at stated age] Derm: [warm], [dry] Head: [atraumatic], [normocephalic], [symmetric] Eyes: [EOMI], [no lid lag], [anicteric sclera] Mouth: [no lip lesion], [mucus membranes moist] Cardiovascular: [S1S2 reg], [no murmur] Lungs: [CTA bilateral], [no rhonchi, no rales] , [no accessory muscle use] Abdominal: [soft], [ nontender to palpation], [no guarding], [no appreciable organomegaly] Ext: [no gross muscle atrophy], [no edema], [no contractures] Neuro: [ CN II-XI grossly intact], [no focal neuro deficits] Psych: [Alert], [oriented], [appropriate affect] A total of 40 minutes of time were spent preparing this complex discharge summary. Patient Condition at Discharge: Stable Plan - Discharge Summary Discharge Rx Participant: No New Discharge Prescriptions: New Folic Acid 1 mg PO DAILY #30 tab Thiamine [Vitamin B-1] 100 mg PO DAILY #30 tab Continue Fluticasone Propionate [Flonase Allergy Relief] 1 - 2 spray EA NOSTRIL DAILY 5 Days ml Discontinued Ibuprofen [Motrin] 600 mg PO Q8HR PRN #30 tab PRN Reason: Pain Amoxicillin/Potassium Clav [Augmentin 875-125 Tablet] 1 each PO Q12HR 7 Days #14 tab Discharge Medication List Fluticasone Propionate [Flonase Allergy Relief] 1 - 2 spray EA NOSTRIL DAILY 5 Days ml 03/07/18 [Rx] Folic Acid 1 mg PO DAILY #30 tab 01/19/22 [Rx] Thiamine [Vitamin B-1] 100 mg PO DAILY #30 tab 01/19/22 [Rx] Follow up Appointment(s)/Referral(s): None,Stated [Primary Care Provider] - 1-2 days Patient Instructions/Handouts: Seizure/Epilepsy Discharge Instructions & Follow-Up Activity/Diet/Wound Care/Special Instructions: Follow-up with PCP in 1 week Discharge Disposition: HOME SELF-CARE
[2022-01-19] MEDS ORDERED: THIAMINE 100 MG TAB PO SCH (17:30)
== END 2022-01-19 11:53 | disposition home or self-care (01) ==
LOC: EC 21:07 → 6NMEDSUR 23:51
PROVIDERS: ADMIT Internal Medicine; ATTEND Internal Medicine
DX: F10.121 Alcohol abuse with intoxication delirium (principal); D64.9 Anemia, unspecified; D69.6 Thrombocytopenia, unspecified; I10 Essential (primary) hypertension; F41.9 Anxiety disorder, unspecified; F31.9 Bipolar disorder, unspecified; F20.9 Schizophrenia, unspecified; F17.200 Nicotine dependence, unspecified, uncomplicated; Y90.8 Blood alcohol level of 240 mg/100 ml or more
CPT/HCPCS: 99284; 36415; 80053; 80048; 85025 ×2; G0378 ×2; G0480; 80320

== ENCOUNTER 2022-01-19 20:21 | Emergency (ER) | payer OTHER ==
[2022-01-19 20:46] VITALS: RESP 16; TEMP 98.3
[2022-01-19] MEDS ORDERED: HYDROmorphone 1 MG/ML 1 ML SYRINGE IM STA (21:55)
--- NOTE | 2022-01-19 21:56 | ED ---
Back Pain HPI - General Chief Complaint: Back Pain/Injury Stated Complaint: Back Injury Time Seen by Provider: 01/19/22 21:54 Source: patient, RN notes reviewed, old records reviewed Limitations: no limitations - History of Present Illness Initial Comments: This is a 46-year-old male to the emergency department for evaluation. Patient coming in today for evaluation of back pain. Patient is well-known to our facility for multiple ER visits with different complaints. Severe sharp pain in his lower middle back without chest medical injury. No loss of bowel or bladder no neurological complaints MD Complaint: back pain, back injury -: days(s) Similar Symptoms Previously: Yes Place: home Radiation: none Severity: moderate Severity scale (1-10): 5 Quality: aching Consistency: constant Improves With: none Worsens With: none, movement Context: while lifting, turning/twisting, bending Associated Symptoms: denies other symptoms Treatments Prior to Arrival: other (0) - Related Data Previous Rx's Medication Instructions Recorded Fluticasone Propionate [Flonase 1 - 2 spray EA NOSTRIL DAILY 5 03/07/18 Allergy Relief] Days ml Folic Acid 1 mg PO DAILY #30 tab 01/19/22 Thiamine [Vitamin B-1] 100 mg PO DAILY #30 tab 01/19/22 Allergies Allergy/AdvReac Type Severity Reaction Status Date / Time No Known Allergies Allergy Verified 01/18/22 04:25 Review of Systems ROS Statement: Those systems with pertinent positive or pertinent negative responses have been documented in the HPI. ROS Other: All systems not noted in ROS Statement are negative. Past Medical History Past Medical History: Hypertension, Seizure Disorder Additional Past Medical History / Comment(s): glaucoma History of Any Multi-Drug Resistant Organisms: None Reported Past Surgical History: Bowel Resection Past Psychological History: Anxiety, Bipolar, Depression, Schizophrenia Smoking Status: Current every day smoker Past Alcohol Use History: Heavy Past Drug Use History: Marijuana - Past Family History Father Family Medical History: Unable to Obtain Additional Family Medical History / Comment(s): Patient denies history of CAD in the family General Exam Limitations: no limitations General appearance: alert, in no apparent distress, appears intoxicated Head exam: Present: atraumatic, normocephalic, normal inspection Eye exam: Present: normal appearance, PERRL, EOMI. Absent: scleral icterus, conjunctival injection, periorbital swelling ENT exam: Present: normal exam, mucous membranes moist Neck exam: Present: normal inspection. Absent: tenderness, meningismus, lymphadenopathy Respiratory exam: Present: normal lung sounds bilaterally. Absent: respiratory distress, wheezes, rales, rhonchi, stridor Cardiovascular Exam: Present: normal rhythm, tachycardia, normal heart sounds. Absent: systolic murmur, diastolic murmur, rubs, gallop, clicks GI/Abdominal exam: Present: soft, normal bowel sounds. Absent: distended, tenderness, guarding, rebound, rigid Extremities exam: Present: normal inspection, full ROM, normal capillary refill. Absent: tenderness, pedal edema, joint swelling, calf tenderness Back exam: Present: normal inspection, tenderness, muscle spasm, paraspinal tenderness Neurological exam: Present: alert, oriented X3, CN II-XII intact Psychiatric exam: Present: normal affect, normal mood Skin exam: Present: warm, dry, intact, normal color. Absent: rash Course Vital Signs 01/19/22 01/20/22 20:42 00:20 Temperature 98.3 F Pulse Rate 104 H 92 Respiratory 16 16 Rate Blood Pressure 179/109 123/74 O2 Sat by Pulse 98 98 Oximetry - Reevaluation(s) Reevaluation #1: 01/20/22 Medical record is reviewed Patient symptoms are improved here in the ER Patient informed of results and questions are answered Medical Decision Making - Medical Decision Making 46 male well-known to our emergency department. Patient coming in for evaluation of back pain. Pain resolved here in the ER is able to ambulate can be discharged home - Lab Data Lab Results 01/19/22 Range/Units 20:02 Urine Color Light Yellow Urine Appearance Clear (Clear) Urine pH 7.5 (5.0-8.0) Ur Specific [place] 1.019 (1.001-1.035) Urine Protein Trace H (Negative) Urine Glucose (UA) Negative (Negative) Urine Ketones Negative (Negative) Urine Blood Negative (Negative) Urine Nitrite Negative (Negative) Urine Bilirubin Negative (Negative) Urine Urobilinogen <2.0 (<2.0) mg/dL Ur Leukocyte Esterase Negative (Negative) - Radiology Data Radiology results: report reviewed (CT head and pelvis negative for acute disease), image reviewed Disposition Clinical Impression: Mechanical back pain Disposition: HOME SELF-CARE Condition: Good Instructions (If sedation given, give patient instructions): Acute Low Back Pain (ED) Is patient prescribed a controlled substance at d/c from ED?: No Referrals: None,Stated [Primary Care Provider] - 1-2 days Time of Disposition: 23:00
[2022-01-19 22:13] LABS: Appearance,Urine Clear (Clear); Bilirubin,Urine Negative (Negative); Blood,Urine Negative (Negative); Color,Urine Light Yellow; Glucose,Urine (UA) Negative (Negative); Ketones,Urine Negative (Negative); Leukocyte Esterase,Urine Negative (Negative); Nitrite,Urine Negative (Negative); PH, Urine 7.5 (5.0-8.0); Protein,Urine Trace (Negative); Specific Gravity,Urine 1.019 (1.001-1.035); Urobilinogen,Urine <2.0 mg/dL (<2.0)
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
[2022-01-20 02:04] VITALS: BP 123/74; PULSE 92
== END 2022-01-20 00:20 | disposition home or self-care (01) ==
LOC: EC 20:21
DX: M54.9 Dorsalgia, unspecified (principal); I10 Essential (primary) hypertension; F41.9 Anxiety disorder, unspecified; F31.9 Bipolar disorder, unspecified; F17.200 Nicotine dependence, unspecified, uncomplicated; F12.90 Cannabis use, unspecified, uncomplicated; Z79.899 Other long term (current) drug therapy
CPT/HCPCS: 81003; 74176; 99284; 96372; J1170

== ENCOUNTER 2022-08-26 13:17 | Observation (INO) | payer OTHER ==
[2022-08-26 15:54] LABS: Basophils % (A) 0 %; Eosinophils # (A) 0.1 k/uL (0-0.7); Eosinophils % (A) 1 %; HCT 38.4 % (39.0-53.0); HGB 12.9 gm/dL (13.0-17.5); Lymphocytes # (A) 1.9 k/uL (1.0-4.8); Lymphocytes % (A) 37 %; MCH 32.1 pg (25.0-35.0); MCHC 33.6 g/dL (31.0-37.0); MCV 95.5 fL (80.0-100.0); Mean Platelet Volume 8.3; Monocytes # (A) 0.2 k/uL (0-1.0); Monocytes % (A) 4 %; Neutrophils # (A) 2.8 k/uL (1.3-7.7); Neutrophils % (A) 54 %; Platelet Count 286 k/uL (150-450); RBC 4.02 m/uL (4.30-5.90); WBC 5.1 k/uL (3.8-10.6)
[2022-08-26 16:01] LABS: Appearance,Urine Clear (Clear); Bilirubin,Urine Negative (Negative); Blood,Urine Moderate (Negative); Color,Urine Colorless; Glucose,Urine (UA) Negative (Negative); Ketones,Urine Negative (Negative); Leukocyte Esterase,Urine Negative (Negative); Mucus,Urine Rare /hpf; Nitrite,Urine Negative (Negative); PH, Urine 6.5 (5.0-8.0); Protein,Urine Negative (Negative); Specific Gravity,Urine 1.002 (1.001-1.035); Urobilinogen,Urine <2.0 mg/dL (<2.0); WBC,Urine <1 /hpf (0-5)
[2022-08-26 16:07] LABS: ALT 31 U/L (4-49); AST 43 U/L (17-59); African American GFR (CKD) >90 (>60 ml/min/1.73 sqM); Albumin 4.3 g/dL (3.5-5.0); Alkaline Phosphatase 66 U/L (38-126); Anion Gap 13 mmol/L; Blood Urea Nitrogen 8 mg/dL (9-20); Calcium 8.4 mg/dL (8.4-10.2); Carbon Dioxide 25 mmol/L (22-30); Chloride 105 mmol/L (98-107); Glucose 85 mg/dL (74-99); Lipase 142 U/L (23-300); Magnesium 2.1 mg/dL (1.6-2.3); Non-African American GFR(CKD) >90 (>60 ml/min/1.73 sqM); Potassium 4.4 mmol/L (3.5-5.1); Sodium 143 mmol/L (137-145); Total Bilirubin 0.7 mg/dL (0.2-1.3); Total Protein 8.2 g/dL (6.3-8.2)
[2022-08-26 16:16] LABS: INR 0.9 (<1.2); Prothrombin Time 9.8 sec (9.0-12.0)
[2022-08-26 16:30] LABS: Amphetamine Screen,Urine Not Detected (NotDetected); Barbiturate Screen,Urine Not Detected (NotDetected); Benzodiazepines Screen,Urine Not Detected (NotDetected); Cocaine Screen,Urine Not Detected (NotDetected); Methadone Screen, Urine Not Detected (NotDetected); Opiate Screen,Urine Not Detected (NotDetected); Oxycodone Screen, Urine Not Detected (NotDetected); Phencyclidine Screen,Urine Not Detected (NotDetected); Tricyclic Antidepressant,Urine Not Detected (NotDetected); Urn Cannabinoid Scrn Not Detected (NotDetected)
[2022-08-26 16:39] LABS: Alcohol 357 mg/dL
--- NOTE | 2022-08-26 16:40 | ED ---
Alcohol HPI - General Chief Complaint: Alcohol Stated Complaint: ETOH Time Seen by Provider: 08/26/22 13:40 Source: patient Mode of arrival: ambulatory Limitations: no limitations - History of Present Illness Initial Comments: 47-year-old male past history of hypertension and seizure disorder who presents to the emergency department altered. He was found outside of the hospital. Staff was unaware the circumstances around the patient's presentation. He was significantly intoxicated. He is covered in urine. States that he drank too much today but does not provide any other history. HPI is limited because of this - Related Data Home Medications Medication Instructions Recorded Confirmed Buspar (Unknown Strength) 1 dose PO DIRECTED 08/26/22 08/31/22 QUEtiapine XR [SEROquel XR] 200 mg PO DIRECTED 08/26/22 08/31/22 Allergies Allergy/AdvReac Type Severity Reaction Status Date / Time No Known Allergies Allergy Verified 08/26/22 22:06 Review of Systems ROS Statement: Those systems with pertinent positive or pertinent negative responses have been documented in the HPI. ROS Other: All systems not noted in ROS Statement are negative. Past Medical History Past Medical History: Hypertension, Seizure Disorder Additional Past Medical History / Comment(s): glaucoma History of Any Multi-Drug Resistant Organisms: None Reported Past Surgical History: Bowel Resection Past Psychological History: Anxiety, Bipolar, Depression, Schizophrenia Smoking Status: Current every day smoker Past Alcohol Use History: Heavy Past Drug Use History: Marijuana - Past Family History Father Family Medical History: Unable to Obtain Additional Family Medical History / Comment(s): Patient denies history of CAD in the family General Exam Limitations: altered mental status General appearance: appears intoxicated, obtunded ENT exam: Present: normal exam, mucous membranes moist Neck exam: Present: normal inspection. Absent: tenderness, meningismus, lymphadenopathy Respiratory exam: Present: normal lung sounds bilaterally. Absent: respiratory distress, wheezes, rales, rhonchi, stridor Cardiovascular Exam: Present: regular rate, normal rhythm, normal heart sounds. Absent: systolic murmur, diastolic murmur, rubs, gallop, clicks GI/Abdominal exam: Present: soft, normal bowel sounds. Absent: distended, tenderness, guarding, rebound, rigid Neurological exam: Present: altered Course Vital Signs 08/26/22 08/26/22 08/26/22 13:38 15:43 15:51 Temperature 97.6 F Pulse Rate 100 73 Respiratory 14 16 Rate Blood Pressure 114/62 149/107 O2 Sat by Pulse 93 L 97 97 Oximetry 08/26/22 08/26/22 08/26/22 16:00 16:20 16:40 Temperature Pulse Rate 96 77 98 Respiratory 16 12 13 Rate Blood Pressure 149/107 145/108 127/85 O2 Sat by Pulse 99 98 78 L Oximetry 08/26/22 08/26/22 08/26/22 17:00 17:20 17:40 Temperature Pulse Rate 109 H 84 107 H Respiratory 15 13 19 Rate Blood Pressure 162/80 153/98 138/77 O2 Sat by Pulse 86 L Oximetry 08/26/22 18:00 Temperature Pulse Rate 86 Respiratory 10 L Rate Blood Pressure 157/101 O2 Sat by Pulse Oximetry Medical Decision Making - Medical Decision Making Was pt. sent in by a medical professional or institution (, [facility], PACU RN, urgent care, hospital, or intermediate...) When possible be specific @ -No Did you speak to anyone other than the patient for history (EMS, parent, family, police, friend...)? What history was obtained from this source @ -No Did you review nursing and triage notes (agree or disagree)? Why? @ -I reviewed and agree with nursing and triage notes Were old charts reviewed (outside hosp., previous admission, EMS record, old EKG, old radiological studies, urgent care reports/EKG's, intermediate records)? Report findings @ - old charts were reviewed - patient previously in ED for alcohol intoxication Differential Diagnosis (chest pain, altered mental status, abdominal pain women, abdominal pain men, vaginal bleeding, weakness, fever, dyspnea, syncope, hea dache, dizziness, GI bleed, back pain, seizure, CVA, palpatations, mental health, musculoskeletal)? @ -alcohol intoxication, drug ingestion, depression, acute psychosis EKG interpreted by me (3pts min.). @ -Not done X-rays interpreted by me (1pt min.). @ -Not done CT interpreted by me (1pt min.). @ -None done U/S interpreted by me (1pt. min.). @ -None done What testing was considered but not performed or refused? (CT, X-rays, U/S, labs)? Why? @ -None What meds were considered but not given or refused? Why? @ -None Did you discuss the management of the patient with other professionals (professionals i.e. , PA, PACU RN, lab, RT, psych nurse, mental health social worker, supervisor microbiology technologists, teacher, airport operations officer, case briefer)? Give summary @ -Admitting physician - Dr. Cuevas Was smoking cessation discussed for >3mins.? @ -No Was critical care preformed (if so, how long)? @ -No Were there social determinants of health that impacted care today? How? (Homelessness, low income, unemployed, alcoholism, drug addiction, transportation, low edu. Level, literacy, decrease access to med. care, fdc, rehab)? @ -Alcoholism Was there de-escalation of care discussed even if they declined (Discuss DNR or withdrawal of care, Hospice)? DNR status @ -No What co-morbidities impacted this encounter? (DM, HTN, Smoking, COPD, CAD, Cancer, CVA, ARF, Chemo, Hep., AIDS, mental health diagnosis, sleep apnea, morbid obesity)? @ -Alcoholism Was patient admitted / discharged? Hospital course, mention meds given and route, prescriptions, significant lab abnormalities, going to OR and other pertinent info. @ -Upon arrival patient placed into room 7. Thorough history and physical exam was performed. Patient significantly intoxicated with an alcohol level of 357. He will be admitted for observation to [facility] [place] [facility]. Undiagnosed new problem with uncertain prognosis? @ -No Drug Therapy requiring intensive monitoring for toxicity (Heparin, Nitro, Insul in, Cardizem)? @ -No Were any procedures done? @ -No Diagnosis/symptom? @ -acute alcohol intoxication Acute, or Chronic, or Acute on Chronic? @ -acute Uncomplicated (without systemic symptoms) or Complicated (systemic symptoms)? @ -complicated Side effects of treatment? @ -No Exacerbation, Progression, or Severe Exacerbation? @ -No Poses a threat to life or bodily function? How? (Chest pain, USA, ME, pneumonia, PE, COPD, DKA, ARF, appy, cholecystitis, CVA, Diverticulitis, Homicidal, Suicidal, threat to staff... and all critical care pts) @ -No - Lab Data Result diagrams: 08/27/22 06:20 08/27/22 06:20 Lab Results 08/26/22 08/26/22 08/26/22 Range/Units 15:17 15:17 15:17 WBC 5.1 (3.8-10.6) k/uL RBC 4.02 L (4.30-5.90) m/uL Hgb 12.9 L (13.0-17.5) gm/dL Hct 38.4 L (39.0-53.0) % MCV 95.5 (80.0-100.0) fL MCH 32.1 (25.0-35.0) pg MCHC 33.6 (31.0-37.0) g/dL RDW 13.0 (11.5-15.5) % Plt Count 286 (150-450) k/uL MPV 8.3 Neutrophils % 54 % Lymphocytes % 37 % Monocytes % 4 % Eosinophils % 1 % Basophils % 0 % Neutrophils # 2.8 (1.3-7.7) k/uL Lymphocytes # 1.9 (1.0-4.8) k/uL Monocytes # 0.2 (0-1.0) k/uL Eosinophils # 0.1 (0-0.7) k/uL Basophils # 0.0 (0-0.2) k/uL PT 9.8 (9.0-12.0) sec INR 0.9 (<1.2) Sodium 143 (137-145) mmol/L Potassium 4.4 (3.5-5.1) mmol/L Chloride 105 (98-107) mmol/L Carbon Dioxide 25 (22-30) mmol/L Anion Gap 13 mmol/L BUN 8 L (9-20) mg/dL Creatinine 0.76 (0.66-1.25) mg/dL Est GFR (CKD-EPI)AfAm >90 (>60 ml/min/1.73 sqM) Est GFR (CKD-EPI)NonAf >90 (>60 ml/min/1.73 sqM) Glucose 85 (74-99) mg/dL Calcium 8.4 (8.4-10.2) mg/dL Magnesium 2.1 (1.6-2.3) mg/dL Total Bilirubin 0.7 (0.2-1.3) mg/dL AST 43 (17-59) U/L ALT 31 (4-49) U/L Alkaline Phosphatase 66 (38-126) U/L Total Protein 8.2 (6.3-8.2) g/dL Albumin 4.3 (3.5-5.0) g/dL Lipase 142 (23-300) U/L Urine Color Urine Appearance (Clear) Urine pH (5.0-8.0) Ur Specific [place] (1.001-1.035) Urine Protein (Negative) Urine Glucose (UA) (Negative) Urine Ketones (Negative) Urine Blood (Negative) Urine Nitrite (Negative) Urine Bilirubin (Negative) Urine Urobilinogen (<2.0) mg/dL Ur Leukocyte Esterase (Negative) Urine WBC (0-5) /hpf Urine Mucus (None) /hpf Urine Opiates Screen (NotDetected) Ur Oxycodone Screen (NotDetected) Urine Methadone Screen (NotDetected) Ur Propoxyphene Screen (NotDetected) Ur Barbiturates Screen (NotDetected) U Tricyclic Antidepress (NotDetected) Ur Phencyclidine Scrn (NotDetected) Ur Amphetamines Screen (NotDetected) U Methamphetamines Scrn (NotDetected) U Benzodiazepines Scrn (NotDetected) Urine Cocaine Screen (NotDetected) U Marijuana (THC) Screen (NotDetected) Serum Alcohol 357 H* mg/dL 08/26/22 Range/Units 15:17 WBC (3.8-10.6) k/uL RBC (4.30-5.90) m/uL Hgb (13.0-17.5) gm/dL Hct (39.0-53.0) % MCV (80.0-100.0) fL MCH (25.0-35.0) pg MCHC (31.0-37.0) g/dL RDW (11.5-15.5) % Plt Count (150-450) k/uL MPV Neutrophils % % Lymphocytes % % Monocytes % % Eosinophils % % Basophils % % Neutrophils # (1.3-7.7) k/uL Lymphocytes # (1.0-4.8) k/uL Monocytes # (0-1.0) k/uL Eosinophils # (0-0.7) k/uL Basophils # (0-0.2) k/uL PT (9.0-12.0) sec INR (<1.2) Sodium (137-145) mmol/L Potassium (3.5-5.1) mmol/L Chloride (98-107) mmol/L Carbon Dioxide (22-30) mmol/L Anion Gap mmol/L BUN (9-20) mg/dL Creatinine (0.66-1.25) mg/dL Est GFR (CKD-EPI)AfAm (>60 ml/min/1.73 sqM) Est GFR (CKD-EPI)NonAf (>60 ml/min/1.73 sqM) Glucose (74-99) mg/dL Calcium (8.4-10.2) mg/dL Magnesium (1.6-2.3) mg/dL Total Bilirubin (0.2-1.3) mg/dL AST (17-59) U/L ALT (4-49) U/L Alkaline Phosphatase (38-126) U/L Total Protein (6.3-8.2) g/dL Albumin (3.5-5.0) g/dL Lipase (23-300) U/L Urine Color Colorless Urine Appearance Clear (Clear) Urine pH 6.5 (5.0-8.0) Ur Specific [place] 1.002 (1.001-1.035) Urine Protein Negative (Negative) Urine Glucose (UA) Negative (Negative) Urine Ketones Negative (Negative) Urine Blood Moderate H (Negative) Urine Nitrite Negative (Negative) Urine Bilirubin Negative (Negative) Urine Urobilinogen <2.0 (<2.0) mg/dL Ur Leukocyte Esterase Negative (Negative) Urine WBC <1 (0-5) /hpf Urine Mucus Rare H (None) /hpf Urine Opiates Screen Not Detected (NotDetected) Ur Oxycodone Screen Not Detected (NotDetected) Urine Methadone Screen Not Detected (NotDetected) Ur Propoxyphene Screen Not Detected (NotDetected) Ur Barbiturates Screen Not Detected (NotDetected) U Tricyclic Antidepress Not Detected (NotDetected) Ur Phencyclidine Scrn Not Detected (NotDetected) Ur Amphetamines Screen Not Detected (NotDetected) U Methamphetamines Scrn Not Detected (NotDetected) U Benzodiazepines Scrn Not Detected (NotDetected) Urine Cocaine Screen Not Detected (NotDetected) U Marijuana (THC) Screen Not Detected (NotDetected) Serum Alcohol mg/dL Disposition Clinical Impression: Alcohol intoxication Disposition: ADMITTED IP TO THIS HOSP Condition: Undetermined Is patient prescribed a controlled substance at d/c from ED?: No Time of Disposition: 16:40 Decision to Admit Reason: Admit from EC Decision Date: 08/26/22 Decision Time: 16:40
[2022-08-26] MEDS ORDERED: NALOXONE 0.4 MG/ML 1 ML VIAL IV PRN (16:41)
[2022-08-26] MEDS ORDERED: LORazepam 2 MG/ML INJ IV PRN ×3 (16:44)
[2022-08-26] MEDS ORDERED: THIAMINE 100 MG/ML 2 ML VIAL IM STA (16:44)
--- NOTE | 2022-08-26 17:45 | P.HPIM ---
History of Present Illness H&P Date: 08/26/22 Chief Complaint: Altered mental status Patient is a 47-year-old male with a past medical history of hypertension and seizure disorder who presents to the emergency department with altered mental status. In the ED patient was found to be intoxicated and covered in urine. Patient is being referred for admission for alcohol intoxication. Patient currently wants to be left alone. He is not answering any questions. He does open his eyes when you call his name. Patient's labs were unremarkable except for alcohol level of 357. Of note patient had a similar admission about one year ago. I reviewed his medication list from that admission and he was not on any seizure or hypertension medications. Review of symptoms: Unable to obtain as patient not willing to answer any questions Physical exam General: [Patient currently is somnolent and lethargic]. Eye: No lid lag normal conjunctiva]. HENT: [Normocephalic, clear tympanic membranes, normal hearing, moist oral mucosa, no scleral icterus, no sinus tenderness]. Neck: [Supple, non-tender, no carotid bruits, no JVD, no lymphadenopathy]. Lungs: [Clear to auscultation and percussion, non-labored respiration]. Heart: [Normal rate, regular rhythm, no murmur, gallop or edema]. Abdomen: [Soft, non-tender, non-distended, normal bowel sounds, no masses]. Musculoskeletal: [Normal range of motion and strength, no tenderness or swelling]. Neurologic: [Patient moving all 4 extremities spontaneously, opens his eyes to name]. Psychiatric: [Patient currently somnolent lethargic so unable to assess]. Assessment Patient's vital signs reviewed and are stable Patient's labs are reviewed and only remarkable for alcohol level of 357 Alcohol intoxication History of seizure disorder History of hypertension Plan Symptomatic management. We'll start patient on NS @ 75 mL an hour Hold off on CIWA protocol as patient is not in withdrawal I reviewed patient's discharge summary from one year ago and at that time he was not on any hypertension or seizure medication. Unclear at this time it patient has a history of seizures due to alcohol withdrawal. Once patient is more responsive Eladioan obtain a better history and verify his meds DVT prophylaxis: Patient has a low VTE score so will encourage early ambulation Past Medical History Past Medical History: Hypertension, Seizure Disorder Additional Past Medical History / Comment(s): glaucoma History of Any Multi-Drug Resistant Organisms: None Reported Past Surgical History: Bowel Resection Past Psychological History: Anxiety, Bipolar, Depression, Schizophrenia Smoking Status: Current every day smoker Past Alcohol Use History: Heavy Past Drug Use History: Marijuana - Past Family History Father Family Medical History: Unable to Obtain Additional Family Medical History / Comment(s): Patient denies history of CAD in the family Medications and Allergies Home Medications Medication Instructions Recorded Confirmed Type No Known Home Medications 06/27/22 06/27/22 History Allergies Allergy/AdvReac Type Severity Reaction Status Date / Time No Known Allergies Allergy Verified 08/26/22 13:44 Physical Exam Osteopathic Statement: *. No significant issues noted on an osteopathic structural exam other than those noted in the History and Physical/Consult. Vitals: Vital Signs Temp Pulse Resp BP Pulse Ox 08/26/22 15:51 73 16 149/107 97 08/26/22 13:38 97.6 F 100 14 114/62 93 L Intake and Output 08/26/22 08/26/22 08/26/22 06:59 14:59 22:59 Other: Weight 99.79 kg Results CBC & Chem 7: 08/26/22 15:17 08/26/22 15:17 Labs: Abnormal Lab Results - Last 24 Hours (Table) 08/26/22 08/26/22 08/26/22 Range/Units 15:17 15:17 15:17 RBC 4.02 L (4.30-5.90) m/uL Hgb 12.9 L (13.0-17.5) gm/dL Hct 38.4 L (39.0-53.0) % BUN 8 L (9-20) mg/dL Urine Blood Moderate H (Negative) Urine Mucus Rare H (None) /hpf Serum Alcohol 357 H* mg/dL
[2022-08-26] MEDS: SODIUM CHLORIDE 0.9% 1,000 ML IV SCH (18:33)
[2022-08-27] MEDS: SODIUM CHLORIDE 0.9% 1,000 ML IV SCH (02:48)
[2022-08-27 08:05] VITALS: PULSE 87; RESP 20; TEMP 98.5
[2022-08-27] MEDS ORDERED: amLODIPine 10 MG TAB PO STA (08:31)
[2022-08-27] MEDS ORDERED: THIAMINE 100 MG TAB PO SCH (09:00)
[2022-08-27] MEDS ORDERED: cloNIDine HCL 0.1 MG TAB PO STA (09:50)
[2022-08-27 10:56] LABS: Basophils # (A) 0.03 X 10*3/uL (0.00-0.10); Basophils % (A) 0.5 %; Eosinophils # (A) 0.05 X 10*3/uL (0.04-0.35); Eosinophils % (A) 0.8 %; HCT 41.8 % (39.6-50.0); HGB 13.6 g/dL (13.0-17.0); Immature Grans, Automated 0.3 %; Lymphocytes # (A) 1.07 X 10*3/uL (0.90-5.00); Lymphocytes % (A) 16.7 %; MCH 31.2 pg (27.0-32.0); MCHC 32.5 g/dL (32.0-37.0); MCV 95.9 fL (80.0-97.0); Mean Platelet Volume 10.5 fL (9.5-12.2); Monocytes # (A) 0.57 X 10*3/uL (0.20-1.00); Monocytes % (A) 8.9 %; NRBC Per 100 WBC 0 /100 WBCS (0.0-0.0); Neutrophils # (A) 4.68 X 10*3/uL (1.80-7.70); Neutrophils % (A) 72.8 %; Platelet Count 328 X 10*3/uL (140-440); RBC 4.36 X 10*6/uL (4.40-5.60); WBC 6.42 X 10*3/uL (4.50-10.00)
[2022-08-27 11:08] LABS: African American GFR (CKD) 120.2 (60.0-200.0); Anion Gap 10.4 mmol/L (10.00-18.00); BUN/Creat Ratio 8.59 Ratio (12.00-20.00); Blood Urea Nitrogen 7.1 mg/dL (9.0-27.0); Calcium 9.3 mg/dL (8.7-10.3); Carbon Dioxide 27.5 mmol/L (20.0-27.5); Non-African American GFR(CKD) 103.7 (60.0-200.0); Potassium 4.6 mmol/L (3.5-5.5)
[2022-08-27 11:11] VITALS: BP 164/100
--- NOTE | 2022-08-27 12:17 | P.PN ---
Subjective Progress Note Date: 08/27/22 Patient is a 47-year-old male with a past medical history of hypertension and seizure disorder who presents to the emergency department with altered mental status. In the ED patient was found to be intoxicated and covered in urine. ED, his vital signs were stable with heart rate of 100. CBC showed hemoglobin of 12.9. Coagulation panel within normal limits. BMP showed be under feet. Amylase and lipase within normal limits. Urinalysis showed moderate blood. UDS was negative. Serum alcohol was 357. Patient was admitted for alcohol intoxication. Patient was seen and examined this morning. He is alert and oriented and anxious to be discharged home. He denies any chest pain, shortness breath or palpitations. No nausea or vomiting. No fever or chills. General: non toxic, no distress, appears at stated age Derm: warm, dry Head: atraumatic, normocephalic, symmetric Eyes: EOMI, no lid lag, anicteric sclera Cardiovascular: S1S2 reg, no murmur Lungs: CTA bilateral, no rhonchi, no rales , no accessory muscle use Ext: no gross muscle atrophy, no edema, no contractures Neuro: no focal neuro deficits Psych: Alert, oriented, appropriate affect Hypertensive Urgency Alcohol intoxication with impending withdrawal History of seizure disorder Bipolar disorder Based on my assessment of this patient, this patient meets a moderate complexity level of care. Patient has an acute diagnosis of alcohol intoxication with impending withdrawal that poses a threat to life or bodily function. His blood pressure this morning is as high as 177 SBP and 128 DBP. He has been given Amlodipine 10 mg by mouth followed by Clonidine 0.1 mg by mouth. We will wait for blood pressure re-check. He may need IV antihypertensive. Unsafe for discharge at this time due to elevated blood pressure. I have reviewed the following health consultant notes: None. I have reviewed the results of the following tests: CBC shows RBC count of 4.36. BMP shows BUN of 7.1 and BUN/Cr ratio of 8.59. I have ordered the following tests: None. I have discussed the care of this patient with the following independent historian: The case was discussed with RN. Patient is anxious to leave. He is pacing up and down the hallway. He is unsafe for discharge at this time due to elevated BP. I have independently interpreted the following test below: None. I have discussed the management of this patient with the following physician: None. Objective - Vital Signs Vital signs: Vital Signs Temp 98.5 F 08/27/22 07:00 Pulse 87 08/27/22 07:00 Resp 20 08/27/22 07:00 BP 164/100 08/27/22 10:54 Pulse Ox 100 08/27/22 07:00 FiO2 Intake & Output 08/26/22 08/27/22 08/27/22 18:59 06:59 18:59 Intake Total 236 Output Total 1300 Balance -1300 236 Weight 99.79 kg Intake: Oral 236 Output: Urine 1300 Uretheral ([place]uz[place]) 500 Other: Voiding Method Indwelling Catheter Indwelling Catheter Toilet # Voids 1 - Labs CBC & Chem 7: 08/27/22 06:20 08/27/22 06:20 Labs: Abnormal Lab Results - Last 24 Hours (Table) 08/26/22 08/26/22 08/26/22 Range/Units 15:17 15:17 15:17 RBC 4.02 L (4.30-5.90) m/uL Hgb 12.9 L (13.0-17.5) gm/dL Hct 38.4 L (39.0-53.0) % BUN 8 L (9-20) mg/dL BUN/Creatinine Ratio (12.00-20.00) Ratio Urine Blood Moderate H (Negative) Urine Mucus Rare H (None) /hpf Serum Alcohol 357 H* mg/dL 08/27/22 08/27/22 Range/Units 06:20 06:20 RBC 4.36 L (4.30-5.90) m/uL Hgb (13.0-17.5) gm/dL Hct (39.0-53.0) % BUN 7.1 L (9-20) mg/dL BUN/Creatinine Ratio 8.59 L (12.00-20.00) Ratio Urine Blood (Negative) Urine Mucus (None) /hpf Serum Alcohol mg/dL
--- NOTE | 2022-08-27 12:20 | P.DS ---
Providers Date of admission: 08/26/22 16:41 Expected date of discharge: 08/27/22 Attending physician: William Sanchez MD Primary care physician: Stated None Hospital Course: AMA note Patient is a 47-year-old male with a past medical history of hypertension and seizure disorder who presents to the emergency department with altered mental status. In the ED patient was found to be intoxicated and covered in urine. ED, his vital signs were stable with heart rate of 100. CBC showed hemoglobin of 12.9. Coagulation panel within normal limits. BMP showed be under feet. Amylase and lipase within normal limits. Urinalysis showed moderate blood. UDS was negative. Serum alcohol was 357. Patient was admitted for alcohol intoxication. Patient was seen and examined this morning. The case was discussed with RN. Patient is anxious to leave. He is pacing up and down the hallway. He is unsafe for discharge at this time due to elevated BP. Patient decided to sign out AMA. No studies or procedures were done during this hospitalization. Please refer to progress note for physical exam. Discharge Diagnosis: Hypertensive Urgency Alcohol intoxication with impending withdrawal History of seizure disorder Bipolar disorder This complex discharge took 35 minutes to complete. Patient Condition at Discharge: Undetermined Plan - Discharge Summary New Discharge Prescriptions: No Action QUEtiapine XR [SEROquel XR] 200 mg PO DIRECTED Buspar (Unknown Strength) 1 dose PO DIRECTED Discharge Medication List Buspar (Unknown Strength) 1 dose PO DIRECTED 08/26/22 [History] QUEtiapine XR [SEROquel XR] 200 mg PO DIRECTED 08/26/22 [History] Follow up Appointment(s)/Referral(s): None,Stated [Primary Care Provider] - 1-2 days Discharge/Stand Alone Forms: AA Meetings [address] - [facility], AA Meetings [place], Who Do I Call?, Community Resources, Outpatient Counseling, Inp Substance Abuse Facilities Discharge Disposition: Left Against Medical Advice
[2022-08-27] MEDS ORDERED: cloNIDine HCL 0.1 MG TAB PO SCH (16:00)
[2022-08-28] MEDS ORDERED: amLODIPine 10 MG TAB PO SCH (09:00)
== END 2022-08-27 11:46 | disposition left against medical advice (07) ==
LOC: EC 13:17 → 6NMEDSUR 16:41
PROVIDERS: ADMIT Internal Medicine; ATTEND Internal Medicine
DX: F10.129 Alcohol abuse with intoxication, unspecified (principal); Y90.8 Blood alcohol level of 240 mg/100 ml or more; I10 Essential (primary) hypertension; G40.909 Epilepsy, unspecified, not intractable, without status epilepticus; Z53.29 Procedure and treatment not carried out because of patient's decision for other reasons; H40.9 Unspecified glaucoma; F41.9 Anxiety disorder, unspecified; F31.9 Bipolar disorder, unspecified; F20.9 Schizophrenia, unspecified; Z90.49 Acquired absence of other specified parts of digestive tract; F17.200 Nicotine dependence, unspecified, uncomplicated; R41.82 Altered mental status, unspecified
CPT/HCPCS: 82075; 96372; 99285; 36415; 80053; 80048; 83690; 83735; 85025 ×2; 85610; 81001; 80306; G0378 ×2; G0480; J3411; 80320

== ENCOUNTER 2022-08-31 21:54 | Emergency (ER) | payer OTHER ==
[2022-08-31] MEDS ORDERED: ONDANSETRON 4 MG/2 ML VIAL IVP STA (22:05)
[2022-08-31] MEDS ORDERED: THIAMINE 100 MG/ML 2 ML VIAL IVP STA (22:05)
[2022-08-31] MEDS ORDERED: SODIUM CHLORIDE 0.9% 1,000 ML IV STA (22:05)
[2022-08-31] MEDS ORDERED: THIAMINE 100 MG TAB PO STA (22:06)
[2022-08-31 22:11] VITALS: TEMP 97.3
[2022-08-31] MEDS ORDERED: THIAMINE 100 MG/ML 2 ML VIAL IM STA (22:12)
[2022-08-31] MEDS ORDERED: LORazepam 2 MG/ML INJ IV PRN ×3 (22:12)
[2022-08-31] MEDS ORDERED: LORazepam 0.5 MG TAB PO PRN (22:12)
[2022-08-31] MEDS ORDERED: LORazepam 1 MG TAB PO PRN ×3 (22:12)
[2022-08-31 22:48] LABS: Basophils % (A) 0 %; Eosinophils # (A) 0.1 k/uL (0-0.7); Eosinophils % (A) 2 %; HCT 38.1 % (39.0-53.0); HGB 12.6 gm/dL (13.0-17.5); Lymphocytes # (A) 1.6 k/uL (1.0-4.8); Lymphocytes % (A) 38 %; MCH 31.7 pg (25.0-35.0); MCHC 33.1 g/dL (31.0-37.0); MCV 95.8 fL (80.0-100.0); Mean Platelet Volume 9.2; Monocytes # (A) 0.2 k/uL (0-1.0); Monocytes % (A) 4 %; Neutrophils # (A) 2.2 k/uL (1.3-7.7); Neutrophils % (A) 52 %; Platelet Count 222 k/uL (150-450); RBC 3.98 m/uL (4.30-5.90); RDW 12.7 % (11.5-15.5); WBC 4.2 k/uL (3.8-10.6)
[2022-08-31 22:59] LABS: ALT 29 U/L (4-49); AST 37 U/L (17-59); African American GFR (CKD) >90 (>60 ml/min/1.73 sqM); Albumin 4.2 g/dL (3.5-5.0); Alkaline Phosphatase 72 U/L (38-126); Anion Gap 13 mmol/L; Blood Urea Nitrogen 16 mg/dL (9-20); Calcium 8.6 mg/dL (8.4-10.2); Carbon Dioxide 21 mmol/L (22-30); Chloride 110 mmol/L (98-107); Glucose 109 mg/dL (74-99); Lipase 197 U/L (23-300); Non-African American GFR(CKD) 86 (>60 ml/min/1.73 sqM); Potassium 4.2 mmol/L (3.5-5.1); Sodium 144 mmol/L (137-145); Total Bilirubin 0.3 mg/dL (0.2-1.3)
[2022-08-31 23:04] LABS: Alcohol 297 mg/dL
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
--- NOTE | 2022-08-31 23:43 | CT ---
EXAM: CT Head Without Intravenous Contrast CLINICAL HISTORY: ITS.REASON CT Reason: possible head trauma TECHNIQUE: Axial computed tomography images of the head/brain without intravenous contrast. CTDI is 45.285 mGy and DLP is 1115.5 mGy-cm. This CT exam was performed using one or more of the following dose reduction techniques: automated exposure control, adjustment of the mA and/or kV according to patient size, and/or use of iterative reconstruction technique. COMPARISON: No relevant prior studies available. FINDINGS: Brain: Unremarkable. No hemorrhage. No significant white matter disease. No edema. Ventricles: Unremarkable. No ventriculomegaly. Bones/joints: Unremarkable. No acute fracture. Soft tissues: Unremarkable. Sinuses: Unremarkable as visualized. No acute sinusitis. Mastoid air cells: Unremarkable as visualized. No mastoid effusion. IMPRESSION: Normal head/brain CT. EXAM: CT Cervical Spine Without Intravenous Contrast CLINICAL HISTORY: ITS.REASON CT Reason: possible head trauma TECHNIQUE: Axial computed tomography images of the cervical spine without intravenous contrast. CTDI is 16.885 mGy and DLP is 486.5 mGy-cm. This CT exam was performed using one or more of the following dose reduction techniques: automated exposure control, adjustment of the mA and/or kV according to patient size, and/or use of iterative reconstruction technique. COMPARISON: No relevant prior studies available. FINDINGS: Vertebrae: Straightening of the cervical spine with loss of normal lordosis. Otherwise, alignment is maintained with preservation of vertebral body heights. Soft tissues: Unremarkable. DISCS/SPINAL CANAL/NEURAL FORAMINA: C2-C3: Unremarkable. No significant disc disease. No stenosis. C3-C4: Anterior bony spurs without significant bony spinal canal or bony neural foramen stenosis. C4-C5: Anterior bony spurs without significant bony spinal canal or bony neural foramen stenosis. C5-C6: Anterior and posterior bony spurs cause mild spinal canal stenosis. C6-C7: Spondylosis with anterior and posterior bony spurs cause moderate left neural foramen stenosis. No bony spinal canal or bony right neural foramen stenosis. C7-T1: Unremarkable. No significant disc disease. No stenosis. IMPRESSION: No acute findings in the cervical spine.
[2022-08-31 23:50] VITALS: BP 99/57; PULSE 83; RESP 19
[2022-09-01] MEDS ORDERED: THIAMINE 100 MG TAB PO SCH (09:00)
== END 2022-09-01 01:01 | disposition home or self-care (01) ==
LOC: EC 21:54
DX: F10.129 Alcohol abuse with intoxication, unspecified (principal); I10 Essential (primary) hypertension; F41.9 Anxiety disorder, unspecified; F31.9 Bipolar disorder, unspecified; F17.200 Nicotine dependence, unspecified, uncomplicated; F12.90 Cannabis use, unspecified, uncomplicated; Z79.899 Other long term (current) drug therapy
CPT/HCPCS: 36415; 93005; 80053; 83605; 83690; 85025; 72125; 70450; 99285; 96374; 96375; 96361; 51702; G0480; J3411; J2405; 80320

== ENCOUNTER 2022-09-03 02:27 | Emergency (ER) | payer OTHER ==
[2022-09-03 02:45] VITALS: BP 93/60; PULSE 93; RESP 16; TEMP 98.2
--- NOTE | 2022-09-03 04:19 | CT ---
EXAM: CT Head Without Intravenous Contrast CLINICAL HISTORY: ITS.REASON CT Reason: Head injury TECHNIQUE: Axial computed tomography images of the head/brain without intravenous contrast. CTDI is 90.5 mGy and DLP is 2292 mGy-cm. This CT exam was performed using one or more of the following dose reduction techniques: automated exposure control, adjustment of the mA and/or kV according to patient size, and/or use of iterative reconstruction technique. COMPARISON: No relevant prior studies available. FINDINGS: Brain: No hemorrhage or mass effect. Ventricles: No hydrocephalus. Bones/joints: Unremarkable. Soft tissues: Unremarkable. Sinuses: No air fluid level. Mastoid air cells: Clear. IMPRESSION: No acute hemorrhage, hydrocephalus, or mass effect. EXAM: CT Cervical Spine Without Intravenous Contrast CLINICAL HISTORY: ITS.REASON CT Reason: Head injury TECHNIQUE: Axial computed tomography images of the cervical spine without intravenous contrast. CTDI is 15.1 mGy and DLP is 469.6 mGy-cm. This CT exam was performed using one or more of the following dose reduction techniques: automated exposure control, adjustment of the mA and/or kV according to patient size, and/or use of iterative reconstruction technique. COMPARISON: No relevant prior studies available. FINDINGS: Vertebrae: No acute fracture. Discs/spinal canal/neural foramina: degenerative changes. Soft tissues: No prevertebral swelling. IMPRESSION: No acute fracture or subluxation.
--- NOTE | 2022-09-03 06:32 | ED ---
Head Injury HPI - General Chief complaint: Head Injury Stated complaint: fall,head injury Time Seen by Provider: 09/03/22 06:29 Source: patient, RN notes reviewed Mode of arrival: ambulatory Limitations: no limitations - History of Present Illness Initial comments: 47-year-old male presents emergency Department chief complaint of fall. Patient states tripped falling for striking his head. Patient states he had no loss conscious. He does complain of mild headache. Denies any upper or lower extremity injury. Patient denies any blood thinners. Patient states he does not feel dizzy, lightheaded or any other associated symptoms - Related Data Home Medications Medication Instructions Recorded Confirmed Buspar (Unknown Strength) 1 dose PO DIRECTED 08/26/22 08/31/22 QUEtiapine XR [SEROquel XR] 200 mg PO DIRECTED 08/26/22 08/31/22 Allergies/Adverse reactions: Allergies Allergy/AdvReac Type Severity Reaction Status Date / Time No Known Allergies Allergy Verified 09/03/22 02:41 Review of Systems ROS Statement: Those systems with pertinent positive or pertinent negative responses have been documented in the HPI. ROS Other: All systems not noted in ROS Statement are negative. Past Medical History Past Medical History: Hypertension, Seizure Disorder Additional Past Medical History / Comment(s): glaucoma History of Any Multi-Drug Resistant Organisms: None Reported Past Surgical History: Bowel Resection Past Psychological History: Anxiety, Bipolar, Depression, Schizophrenia Smoking Status: Current every day smoker Past Alcohol Use History: Heavy Past Drug Use History: Marijuana - Past Family History Father Family Medical History: Unable to Obtain Additional Family Medical History / Comment(s): Patient denies history of CAD in the family General Exam Limitations: no limitations General appearance: alert, in no apparent distress Head exam: Present: atraumatic, normocephalic, normal inspection Eye exam: Present: normal appearance, PERRL, EOMI. Absent: scleral icterus, co njunctival injection, periorbital swelling ENT exam: Present: normal exam, normal oropharynx, mucous membranes moist Neck exam: Present: normal inspection, full ROM. Absent: tenderness, meningismus, lymphadenopathy Respiratory exam: Present: normal lung sounds bilaterally. Absent: respiratory distress, wheezes, rales, rhonchi, stridor Cardiovascular Exam: Present: regular rate, normal rhythm, normal heart sounds. Absent: systolic murmur, diastolic murmur, rubs, gallop, clicks Back exam: Present: full ROM. Absent: tenderness Neurological exam: Present: alert, oriented X3, CN II-XII intact, reflexes normal. Absent: motor sensory deficit Skin exam: Present: warm, dry, intact, normal color. Absent: rash Course Vital Signs 09/03/22 02:42 Temperature 98.2 F Pulse Rate 93 Respiratory 16 Rate Blood Pressure 93/60 O2 Sat by Pulse 98 Oximetry Medical Decision Making - Medical Decision Making Was pt. sent in by a medical professional or institution (, LULA, CRM BUSINESS ANALYST, urgent care, hospital, or intermediate...) When possible be specific @ -No Did you speak to anyone other than the patient for history (EMS, parent, family, police, friend...)? What history was obtained from this source @ -No Did you review nursing and triage notes (agree or disagree)? Why? @ -I reviewed and agree with nursing and triage notes Were old charts reviewed (outside hosp., previous admission, EMS record, old EKG, old radiological studies, urgent care reports/EKG's, intermediate records)? Report findings @ -No old charts were reviewed Differential Diagnosis (chest pain, altered mental status, abdominal pain women, abdominal pain men, vaginal bleeding, weakness, fever, dyspnea, syncope, headache, dizziness, GI bleed, back pain, seizure, CVA, palpatations, mental health, musculoskeletal)? @ -Eye contusion, concussion, intracranial hemorrhage, skull fracture, cervical fracture EKG interpreted by me (3pts min.). @ -None X-rays interpreted by me (1pt min.). @ -None done CT interpreted by me (1pt min.). @ -CT shows no acute intracranial hemorrhage, mass effect or cervical fracture U/S interpreted by me (1pt. min.). @ -None done What testing was considered but not performed or refused? (CT, X-rays, U/S, labs)? Why? @ -None What meds were considered but not given or refused? Why? @ -None Did you discuss the management of the patient with other professionals (professionals i.e. LULA Lal, CRM BUSINESS ANALYST, lab, RT, psych nurse, pediatric social worker, scientific laboratory supervisor, teacher, us customs and border officer, shoe caser)? Give summary @ -No Was smoking cessation discussed for >3mins.? @ -No Was critical care preformed (if so, how long)? @ -No Were there social determinants of health that impacted care today? How? (Homelessness, low income, unemployed, alcoholism, drug addiction, transportation, low edu. Level, literacy, decrease access to med. care, group home, rehab)? @ -No Was there de-escalation of care discussed even if they declined (Discuss DNR or withdrawal of care, Hospice)? DNR status @ -No What co-morbidities impacted this encounter? (DM, HTN, Smoking, COPD, CAD, Cancer, CVA, ARF, Chemo, Hep., AIDS, mental health diagnosis, sleep apnea, morbid obesity)? @ -None Was patient admitted / discharged? Hospital course, mention meds given and route, prescriptions, significant lab abnormalities, going to OR and other pertinent info. @ -Discharge CT of brain, C-spine is negative for acute process, patient is neurologically intact patient we discharged in stable condition return parameters were discussed. Undiagnosed new problem with uncertain prognosis? @ -No Drug Therapy requiring intensive monitoring for toxicity (Heparin, Nitro, Insulin, Cardizem)? @ -No Were any procedures done? @ -No Diagnosis/symptom? @ -Fall, closed head injury Acute, or Chronic, or Acute on Chronic? @ -Acute Uncomplicated (without systemic symptoms) or Complicated (systemic symptoms)? @ -Uncomplicated Side effects of treatment? @ -No Exacerbation, Progression, or Severe Exacerbation? @ -No Poses a threat to life or bodily function? How? (Chest pain, [place], [place], pneumonia, PE, COPD, DKA, ARF, appy, cholecystitis, CVA, Diverticulitis, Homicidal, Helen cidal, threat to staff... and all critical care pts) @ -No Disposition Clinical Impression: Closed head injury Disposition: HOME SELF-CARE Condition: Stable Instructions (If sedation given, give patient instructions): Head Injury (ED) Additional Instructions: Please return to the Emergency Department if symptoms worsen or any other concerns. Is patient prescribed a controlled substance at d/c from ED?: No Referrals: None,Stated [Primary Care Provider] - 1-2 days Time of Disposition: 06:32
== END 2022-09-03 06:43 | disposition home or self-care (01) ==
LOC: EC 02:27
DX: S09.90XA Unspecified injury of head, initial encounter (principal); I10 Essential (primary) hypertension; F41.9 Anxiety disorder, unspecified; F31.9 Bipolar disorder, unspecified; F17.200 Nicotine dependence, unspecified, uncomplicated; F12.90 Cannabis use, unspecified, uncomplicated; Z79.899 Other long term (current) drug therapy; W01.198A Fall on same level from slipping, tripping and stumbling with subsequent striking against other object, initial encounter
CPT/HCPCS: 70450; 72125; 99284

== ENCOUNTER 2022-12-20 20:41 | Emergency (ER) | payer OTHER ==
[2022-12-20 20:48] VITALS: RESP 18
[2022-12-20 21:25] LABS: Basophils % (A) 0 %; Eosinophils # (A) 0.2 k/uL (0-0.7); Eosinophils % (A) 3 %; HCT 43.1 % (39.0-53.0); HGB 14.4 gm/dL (13.0-17.5); Lymphocytes # (A) 2.5 k/uL (1.0-4.8); Lymphocytes % (A) 32 %; MCHC 33.4 g/dL (31.0-37.0); MCV 92.8 fL (80.0-100.0); Mean Platelet Volume 8.3; Monocytes # (A) 0.3 k/uL (0-1.0); Monocytes % (A) 4 %; Neutrophils # (A) 4.6 k/uL (1.3-7.7); Neutrophils % (A) 59 %; Platelet Count 289 k/uL (150-450); RBC 4.65 m/uL (4.30-5.90); RDW 12.7 % (11.5-15.5); WBC 7.8 k/uL (3.8-10.6)
[2022-12-20 21:34] LABS: INR 0.9 (<1.2); Partial Thromboplastin Time 27.5 sec (22.0-30.0); Prothrombin Time 9.5 sec (9.0-12.0)
--- NOTE | 2022-12-20 22:03 | XR ---
EXAMINATION TYPE: XR shoulder complete RT DATE OF EXAM: 12/20/2022 9:41 PM INDICATION: Patient age:Male; 47 years old; Reason for study: right shoulder pain; COMPARISON: None TECHNIQUE: The right shoulder was examined in AP, internally rotated and scapular Y projections. FINDINGS: No evidence of acute osseous pathology, joint dislocation, or soft tissue swelling. The remaining por tions of the visualized chest are unremarkable. Joint body of the acromioclavicular joint with calcif ic density noted on single view. IMPRESSION: 1. No acute osseous pathology. 2. Mild right AC joint osteoarthrosis.
[2022-12-20 22:15] LABS: ALT 50 U/L (4-49); AST 45 U/L (17-59); African American GFR (CKD) >90 (>60 ml/min/1.73 sqM); Albumin 4.9 g/dL (3.5-5.0); Alkaline Phosphatase 81 U/L (38-126); Anion Gap 12 mmol/L; Blood Urea Nitrogen 16 mg/dL (9-20); Calcium 9.2 mg/dL (8.4-10.2); Carbon Dioxide 24 mmol/L (22-30); Chloride 104 mmol/L (98-107); Glucose 91 mg/dL (74-99); Non-African American GFR(CKD) >90 (>60 ml/min/1.73 sqM); Potassium 4.8 mmol/L (3.5-5.1); Sodium 140 mmol/L (137-145); Total Bilirubin 0.5 mg/dL (0.2-1.3); Total Protein 9.7 g/dL (6.3-8.2)
[2022-12-20 22:50] LABS: Alcohol 237 mg/dL
--- NOTE | 2022-12-20 23:15 | ED ---
General Adult HPI - General Chief complaint: Fall Stated complaint: ETOH Time Seen by Provider: 12/20/22 20:51 Source: EMS, RN notes reviewed Mode of arrival: EMS Limitations: no limitations - History of Present Illness Initial comments: 47-year-old -[place] male with a past medical history significant for alcohol abuse presents emergency department with a chief complaint of alcohol intoxication. Patient presents via EMS. Patient reports that he fell on the sidewalk approximately 3 days ago. He is complaining of right shoulder pain and right lower back pain. He is not taken anything for his symptoms. He does report to recent alcohol use including a beer and "some liquor." Patient is a poor historian. History is limited due to the patient appearing likely intoxicated. - Related Data Home Medications Medication Instructions Recorded Confirmed Buspar (Unknown Strength) 1 dose PO DIRECTED 08/26/22 08/31/22 QUEtiapine XR [SEROquel XR] 200 mg PO DIRECTED 08/26/22 08/31/22 Allergies Allergy/AdvReac Type Severity Reaction Status Date / Time No Known Allergies Allergy Verified 09/03/22 02:41 Review of Systems ROS Statement: Those systems with pertinent positive or pertinent negative responses have been documented in the HPI. ROS Other: All systems not noted in ROS Statement are negative. Past Medical History Past Medical History: Hypertension, Seizure Disorder Additional Past Medical History / Comment(s): glaucoma History of Any Multi-Drug Resistant Organisms: None Reported Past Surgical History: Bowel Resection Past Psychological History: Anxiety, Bipolar, Depression, Schizophrenia Smoking Status: Current every day smoker Past Alcohol Use History: Heavy Past Drug Use History: Marijuana - Past Family History Father Family Medical History: Unable to Obtain Additional Family Medical History / Comment(s): Patient denies history of CAD in the family General Exam - General Exam Comments Initial Comments: General: Alert, in no acute distress Head: atraumatic normocephalic. Eyes PERRL, EOMI intact, mucous membranes moist Respiratory: Lungs clear to auscultation bilaterally Cardiovascular: Heart rate regular rate and rhythm Abdominal: Soft without guarding or rebound Extremities: Normal inspection with full range of motion and normal capillary refill Neuroogic: alert and oriented 3, CN II-XII intact, able to ambulate with steady gait Skin: warm dry and intact with normal color Limitations: no limitations Course Vital Signs 09/01/23 20:45 Pulse Rate 97 Respiratory 18 Rate Blood Pressure 133/83 O2 Sat by Pulse 97 Oximetry Medical Decision Making - Medical Decision Making Was pt. sent in by a medical professional or institution (LULA Lal, RECREATION FACILITIES SUPERVISOR, urgent care, hospital, or care home...) When possible be specific @ -[No] Did you speak to anyone other than the patient for history (EMS, parent, family, police, friend...)? What history was obtained from this source @ -EMS Did you review nursing and triage notes (agree or disagree)? Why? @ -[I reviewed and agree with nursing and triage notes] Were old charts reviewed (outside hosp., previous admission, EMS record, old EKG, old radiological studies, urgent care reports/EKG's, care home records)? Report findings @ -[No old charts were reviewed] Differential Diagnosis (chest pain, altered mental status, abdominal pain women, abdominal pain men, vaginal bleeding, weakness, fever, dyspnea, syncope, headache, dizziness, GI bleed, back pain, seizure, CVA, palpatations, mental health, musculoskeletal)? @ -[not applicable] EKG interpreted by me (3pts min.). @ -[As above] X-rays interpreted by me (1pt min.). @ -Shoulder x-ray negative for any evidence of fracture or dislocation - Brain and abdominal CT negative for any intracranial or intra-abdominal pathology CT interpreted by me (1pt min.). @ -[None done] U/S interpreted by me (1pt. min.). @ -[None done] What testing was considered but not performed or refused? (CT, X-rays, U/S, labs)? Why? @ -[None] What meds were considered but not given or refused? Why? @ -[None] Did you discuss the management of the patient with other professionals (professionals i.e. LULA Lal, RECREATION FACILITIES SUPERVISOR, lab, RT, psych nurse, rn social work, drafter plumbing, teacher, family preservation officer, spring encaser)? Give summary @ -[No] Was smoking cessation discussed for >3mins.? @ -[No] Was critical care preformed (if so, how long)? @ -[No] Were there social determinants of health that impacted care today? How? (Homelessness, low income, unemployed, alcoholism, drug addiction, transportation, low edu. Level, literacy, decrease access to med. care, [facility], rehab)? @ -[No] Was there de-escalation of care discussed even if they declined (Discuss DNR or withdrawal of care, Hospice)? DNR status @ -[No] What co-morbidities impacted this encounter? (DM, HTN, Smoking, COPD, CAD, Cancer, CVA, ARF, Chemo, Hep., AIDS, mental health diagnosis, sleep apnea, morbi d obesity)? @ -[None] Was patient admitted / discharged? Hospital course, mention meds given and route, prescriptions, significant lab abnormalities, going to OR and other pertinent info. @ -Discharged. This is a 47-year-old -[place] male who presents to the emergency department via EMS for fall and EtOH. Patient had a thorough history and physical exam performed. Physical exam reveals heart rate regular rate and rhythm, lungs clear to auscultation bilaterally, abdomen soft and nontender. No focal neuro deficits Upon exam. The patient able to relate with a steady gait. Patient had extensive imaging and laboratory studies which were essentially unremarkable other than EtOH level being 237. Patient will be observed in the emergency department until clinically sober. Discharged in stable condition. Provided resources on alcohol abuse and EtOH withdrawal. Patient discharged in stable condition. Case discussed with Dr. Wall, P who agrees with plan of care Undiagnosed new problem with uncertain prognosis? @ -[No] Drug Therapy requiring intensive monitoring for toxicity (Heparin, Nitro, Insulin, Cardizem)? @ -[No] Were any procedures done? @ -[No] Diagnosis/symptom? @ -Alcohol intoxication - Fall Acute, or Chronic, or Acute on Chronic? @ -Acute Uncomplicated (without systemic symptoms) or Complicated (systemic symptoms)? @ -Uncomplicated Side effects of treatment? @ -[No] Exacerbation, Progression, or Severe Exacerbation? @ -[No] Poses a threat to life or bodily function? How? (Chest pain, [place], [place], pneumonia, PE, COPD, DKA, ARF, appy, cholecystitis, CVA, Diverticulitis, Homicidal, Suicidal, threat to staff... and all critical care pts) @ -Low likelihood - Lab Data Result diagrams: 12/20/22 21:20 12/20/22 21:20 Lab Results 12/20/22 12/20/22 12/20/22 Range/Units 21:20 21:20 21:20 WBC 7.8 (3.8-10.6) k/uL RBC 4.65 (4.30-5.90) m/uL Hgb 14.4 (13.0-17.5) gm/dL Hct 43.1 (39.0-53.0) % MCV 92.8 (80.0-100.0) fL MCH 31.0 (25.0-35.0) pg MCHC 33.4 (31.0-37.0) g/dL RDW 12.7 (11.5-15.5) % Plt Count 289 (150-450) k/uL MPV 8.3 Neutrophils % 59 % Lymphocytes % 32 % Monocytes % 4 % Eosinophils % 3 % Basophils % 0 % Neutrophils # 4.6 (1.3-7.7) k/uL Lymphocytes # 2.5 (1.0-4.8) k/uL Monocytes # 0.3 (0-1.0) k/uL Eosinophils # 0.2 (0-0.7) k/uL Basophils # 0.0 (0-0.2) k/uL PT 9.5 (9.0-12.0) sec INR 0.9 (<1.2) APTT 27.5 (22.0-30.0) sec Sodium 140 (137-145) mmol/L Potassium 4.8 (3.5-5.1) mmol/L Chloride 104 (98-107) mmol/L Carbon Dioxide 24 (22-30) mmol/L Anion Gap 12 mmol/L BUN 16 (9-20) mg/dL Creatinine 0.97 (0.66-1.25) mg/dL Est GFR (CKD-EPI)AfAm >90 (>60 ml/min/1.73 sqM) Est GFR (CKD-EPI)NonAf >90 (>60 ml/min/1.73 sqM) Glucose 91 (74-99) mg/dL Calcium 9.2 (8.4-10.2) mg/dL Total Bilirubin 0.5 (0.2-1.3) mg/dL AST 45 (17-59) U/L ALT 50 H (4-49) U/L Alkaline Phosphatase 81 (38-126) U/L Total Protein 9.7 H (6.3-8.2) g/dL Albumin 4.9 (3.5-5.0) g/dL Serum Alcohol 237 H* mg/dL Disposition Clinical Impression: Fall, Alcohol intoxication Disposition: HOME SELF-CARE Condition: Stable Instructions (If sedation given, give patient instructions): Fall Prevention fo r Older Adults (ED), Abuse of Alcohol (ED), Alcohol Intoxication (DC), At-Risk Alcohol Use (ED) Additional Instructions: Please return to the emergency department if symptoms worsen or persist Is patient prescribed a controlled substance at d/c from ED?: No Referrals: None,Stated [Primary Care Provider] - 1-2 days Time of Disposition: 00:16
--- NOTE | 2022-12-20 23:40 | CT ---
EXAMINATION TYPE: CT brain wo con CT DLP: 1264 mGycm, Automated exposure control for dose reduction was used. DATE OF EXAM: 12/20/2022 10:59 PM COMPARISON: 09/03/2022. CLINICAL INDICATION:Male, 47 years old with history of fall, TECHNIQUE: Brain: Axial CT images of the brain were obtained with coronal and sagittal reformats created and rev iewed. Contrast used: None. Oral contrast used: None. FINDINGS: Brain: Extra-axial spaces: No abnormal extra-axial fluid collections. Ventricular system: Within normal limits Cerebral parenchyma: No acute intraparenchymal hemorrhage or mass effect. The chacon-white junction is well differentiated. Cerebellum: Unremarkable. Mass effect: No evidence of midline shift. Intracranial vasculature: unremarkable Soft tissues: Normal. Calvarium/osseous structures: No depressed skull fracture. Nonfusion of the posterior arch of C1. Paranasal sinuses and mastoid air cells: Mild scattered paranasal sinus disease. Visualized orbits: Orbital contents are intact. IMPRESSION: No acute intracranial process. 52
--- NOTE | 2022-12-20 23:52 | CT ---
EXAMINATION TYPE: CT abdomen pelvis w con CT DLP: 1271 mGycm, Automated exposure control for dose reduction was used. DATE OF EXAM: 12/20/2022 11:01 PM COMPARISON: CT abdomen pelvis most recent from 01/19/2022 CLINICAL INDICATION:Male, 47 years old with history of abdominal pain; TECHNIQUE: Axial CT of the abdomen and pelvis. Sagittal and coronal reformats were created on a [email or web address] workstation. Contrast used: 100 cc Isovue 300 (none if empty) Oral contrast used: None (none if empty) FINDINGS: LOWER CHEST: Unremarkable ABDOMEN LIVER: Unremarkable GALLBLADDER AND BILE DUCTS: Unremarkable. PANCREAS: Unremarkable. SPLEEN: Unremarkable. ADRENAL GLANDS: Unremarkable. KIDNEYS AND URETERS: No evidence of hydronephrosis or obstructive renal calculus. Nonobstructing 2 mm right renal calculus. The ureters are unremarkable. Simple appearing probable cysts bilaterally. PELVIS BLADDER: Unremarkable REPRODUCTIVE: Unremarkable. ABDOMEN & PELVIS STOMACH AND BOWEL: No evidence of bowel obstruction. The appendix is normal. PERITONEUM/RETROPERITONEUM: No evidence of pneumoperitoneum or free fluid. VASCULATURE: No evidence of aortic aneurysm. MUSCULOSKELETAL: No acute osseous abnormalities. Mild disc degeneration changes are present throughou t the thoracolumbar spine. There is a transitional L5 vertebrae. LYMPH NODES: No gross evidence for lymphadenopathy. SOFT TISSUE/ABDOMINAL WALL: Metallic foreign body near the L5 right facet joint. Body IMPRESSION: No definitive acute abdominal process to explain the patient's pain. No obstructive uropathy. No kenny l obstruction. The appendix is normal. Nonobstructing right renal calculus measuring 2 mm.
[2022-12-21 01:08] VITALS: BP 123/78; PULSE 78; TEMP 98.2
== END 2022-12-21 01:06 | disposition home or self-care (01) ==
LOC: EC 20:41
DX: F10.129 Alcohol abuse with intoxication, unspecified (principal); M54.50 Low back pain, unspecified; I10 Essential (primary) hypertension; F41.9 Anxiety disorder, unspecified; F31.9 Bipolar disorder, unspecified; F17.200 Nicotine dependence, unspecified, uncomplicated; F12.90 Cannabis use, unspecified, uncomplicated; Z79.899 Other long term (current) drug therapy; W18.30XA Fall on same level, unspecified, initial encounter; Y92.480 Sidewalk as the place of occurrence of the external cause; Y90.7 Blood alcohol level of 200-239 mg/100 ml
CPT/HCPCS: 36415; 80053; 85025; 85610; 85730; 73030; 70450; 74177; 99285; G0480; Q9967; 80320

== ENCOUNTER 2022-12-22 05:44 | Emergency (ER) | payer OTHER ==
[2022-12-22 05:51] VITALS: BP 119/82; PULSE 101; RESP 18; TEMP 98.3
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
== END 2022-12-22 06:15 | disposition home or self-care (01) ==
LOC: EC 05:44
DX: F10.120 Alcohol abuse with intoxication, uncomplicated (principal); I10 Essential (primary) hypertension; F41.9 Anxiety disorder, unspecified; F31.9 Bipolar disorder, unspecified; F17.200 Nicotine dependence, unspecified, uncomplicated; F12.90 Cannabis use, unspecified, uncomplicated; Z79.899 Other long term (current) drug therapy
CPT/HCPCS: 82075; 99283